=== PATIENT | male | born 1970 | race Caucasian/White ===

== ENCOUNTER 2016-06-05 14:51 | Emergency (ER) | payer OTHER ==
[2016-06-05] MEDS ORDERED: ALBUTEROL 90 MCG/ACT 8GM HFA INHALER As Ordered ONE (16:17)
--- NOTE | 2016-06-05 16:24 | REP ---
Chest x-ray: Two views. History: Cough . Comparison study: April 23, 2016 and December 12, 2012 . Findings: The lungs are well inflated and free of infiltrate. The pleural angles are sharp. The heart size is normal. Pulmonary vasculature is not increased. No significant bony abnormality is seen. Impression: Negative chest x-ray. Signed by Walter Rader MD 06/05/2016 04:16 P
[2016-06-05] MEDS ORDERED: AZITHROMYCIN 250 MG TAB As Ordered ONE (16:53)
--- NOTE | 2016-06-05 16:59 | EDDOCDS ---
Nurse's Notes [facility] Name: Hari Hanna Age: 46 yrs Sex: Male : 1970 Arrival Date: 06/05/2016 Time: 14:51 Bed PR Private MD: Fabián Lechuga P. Diagnosis: Acute serous otitis media, right ear;Acute bronchitis Presentation: 06/05 14:54 Presenting complaint: Patient states: "bronchitis" dx last week by Dr. Lechuga. Pt now ttb c/o deeper cough and headaches with coughing. "green phlegm". Adult Sepsis Screening: The patient does not have new or worsening altered mentation. Patient's respiratory rate is less than 22. Systolic blood pressure is greater than 100. Patient has a qSOFA score of 0- Negative Sepsis Screen. Suicide/Homicide risk assessment- the patient denies having any suicidal and/or homicidal ideations and does not present with any other emotional, behavioral or mental health complaints. 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 Transition of care: patient was not received from another setting of care. 14:54 Acuity: MOON Level 4 ttb 14:54 Method Of Arrival: Walkin/Carried/Asstd ttb Triage Assessment: 14:59 General: Appears in no apparent distress, well nourished, well groomed, Behavior is ttb appropriate for age, cooperative, pleasant. Pain: Location: headache 3/10. HIV screening NA for this visit Offered previously. Neurological: Level of Consciousness is awake, alert. Cardiovascular: Chest pain is denied. Respiratory: Airway is patent Respiratory effort is even, unlabored, shallow, Respiratory pattern is regular, Reports shortness of breath cough that is pain with cough the patient has moderate shortness of breath. Derm: Skin is normal. Historical: - Allergies: Latex (Rash); - Home Meds: 1. amitriptyline 25 mg Oral tab 1 tab once daily (Last dose: 06/04/2016) 2. gabapentin 300 mg Oral Tb24 three times a day (Last dose: 06/05/2016 08:00) 3. atenolol 50 mg Oral tab 1 tab 2 times per day (Last dose: 06/05/2016 08:00) 4. hydrochlorothiazide 25 mg Oral tab 1 tab once daily (Last dose: 06/05/2016 08:00) 5. ibuprofen 800 mg Oral tab 1 tab as needed (Last dose: Unknown) 6. Invokana 300 mg oral tab 1 tab once daily (Last dose: 06/05/2016 08:00) 7. lisinopril 40 mg Oral tab 1 tab once daily (Last dose: 06/05/2016 08:00) 8. Novolog 100 unit/mL Sub-Q soln 100 unit three times a day (Last dose: 06/05/2016 08:00) 9. omeprazole 20 mg Oral cpDR 1 cap once daily (Last dose: 06/05/2016 08:00) 10. oxycodone 5 mg Oral cap as needed (Last dose: 06/05/2016 08:00) 11. tizanidine 4 mg oral tab as needed (Last dose: 06/05/2016 08:00) 12. Victoza 2-Nixon 1.8mg subcutaneous once daily (Last dose: 06/05/2016 08:00) 13. Zyrtec 10 mg Oral tab 1 tab once daily (Last dose: 06/05/2016 08:00) 14. valacyclovir 500 mg Oral tab 2 tabs prn (Last dose: Unknown) 15. u500 insulin 31 units TID 16. [id number] 31 unit three times a day (Last dose: 06/05/2016 08:00) 17. Ceftin 500 mg Oral tab 2 times per day completed course yesterday (Last dose: 06/04/2016) - PMHx: Stroke; Spinal Stenosis; leaky heart valve; Hypertension; Hypercholesterolemia; GERD; Genital Warts; Diabetes - IDDM: controlled; Cholelithiasis; HSV; - PSHx: left knee; Arthroscopy, Knee- Right; right ankle; right wrist; - Social history: Smoking status: Patient states former smoker of tobacco. Patient/guardian denies using alcohol, street drugs, No barriers to communication noted, The patient speaks fluent Azerbaijani, Speaks appropriately for age. - Family history: Not pertinent. - : The pt / caregiver states he / she is not on anticoagulants. Home medication list is obtained from the patient. - Exposure Risk Screening:: None identified. Screenin:57 Screening information is obtained from the patient. Fall risk: No risks identified. js13 Assistance ADL's: requires no assistance with activities of daily living. Abuse/DV Screen: The patient / caregiver reports he/she is: not in a situation that causes fear, pain or injury. Nutritional screening: No deficits noted. Advance Directives: There is no active DNR order. home support is adequate. Assessment: 16:56 Adult Sepsis Screening: The patient does not have new or worsening altered mentation. js13 Patient's respiratory rate is less than 22. Systolic blood pressure is greater than 100. Patient has a qSOFA score of 0- Negative Sepsis Screen. General: Appears in no apparent distress, Behavior is appropriate for age, cooperative. Pain: Denies pain. Neurological: Level of Consciousness is awake, alert. Respiratory: Airway is patent Respiratory effort is even, unlabored, Respiratory pattern is regular, Breath sounds with wheezes. Derm: Skin is pink, warm & dry. Vital Signs: 14:54 BP 110 / 67; Pulse 106; Resp 17; Temp 98.4(T); Pulse Ox 96% ; Weight 142.88 kg (R); lr2 Height 5 ft. 9 in. (175.26 cm) (R); 14:54 Body Mass Index 46.52 (142.88 kg, 175.26 cm) lr2 Vitals: 14:54 Log In Time: June 05, 2016 at 14:51. lr2 ED Course: 14:53 Patient visited by Millie South. lr2 14:53 Fabián Lechuga is Private Physician. lr2 14:53 Patient moved to Waiting lr2 14:54 Patient moved to Pre RCE lr2 14:55 Triage Initiated ttb 15:01 Patient visited by Brianna Lee RN. ttb 15:15 Patient moved to Triage 1 srm 15:59 Edson Gutierrez PA is PHCP. mo1 15:59 Jacquie Arroyo MD is Attending Physician. mo1 16:06 Patient visited by Edson Gutierrez PA. mo1 16:11 Patient moved to PR / srm 16:33 [facility] Payment Agreement was scanned into [employer] and attached to record. zo 16:45 Chest, 2 View (pa\\E\\lat) Returned. EDMS 16:52 Fabián Lechuga is Referral Physician. mo1 16:57 The patient / caregiver is instructed regarding the plan of care and ED course. js13 16:57 No IV's were initiated during this patient's visit. No procedures done that require js13 assistance. Administered Medications: 16:23 Drug: Ventolin 2 puffs [Ventolin HFA 90 mcg/actuation aerosol inhaler (2 puffs)] Route: cs15 Inhalation; 16:56 Drug: azithromycin 500 mg [azithromycin 250 mg tablet (2 tabs)] Route: PO; js13 16:56 Follow up: Response: Pt left department before re-evaluation is appropriate js13 RT: 16:23 Initial Med Neb Given as ordered. Oxygen is room air. Respiratory: Respiratory effort cs15 is unlabored, Respiratory pattern is symmetrical, Sputum is thick brown yellow Breath sounds are diminished bilaterally. Order Results: Radiology Order: Chest, 2 View (pa\\E\\lat) Test: Chest, 2 View (pa\\E\\lat) REASON FOR EXAMINATION: Cough; Chest x-ray: Two views.; ; History: Cough .; ; Comparison study: April 23, 2016 and December 12, 2012 .; ; Findings: The lungs are well inflated and free of infiltrate. The pleural; angles are sharp. The heart size is normal. Pulmonary vasculature is not; increased. No significant bony abnormality is seen.; ; Impression:; ; Negative chest x-ray.; ; ; Signed by; Walter Rader MD 06/05/2016 04:16 P; Outcome: 16:53 Discharge ordered by Provider. mo1 16:57 Discharge Assessment: Patient awake, alert and oriented x 3. No cognitive and/or js13 functional deficits noted. Patient verbalized understanding of disposition instructions. patient administered narcotics - no. The following High Risk Discharge criteria are identified: None. Discharged to home ambulatory. Condition: stable. Discharge instructions given to patient, Instructed on discharge instructions, follow up and referral plans. medication usage, Demonstrated understanding of instructions, medications, Pt was receptive of discharge instructions/ teaching. Prescriptions given X 2. No special radiology studies were completed. Property :Personal belongings accompany Pt. 16:58 Patient left the ED. js13 Signatures: Dispatcher [employer] EDMS Linh Snider, Fabio Cole RN, Jennifer, RN RN js13 Brianna Lee RN RN ttb O'Hagan, Michael, PA PA mo1 Perico Alejandra,RT RT cs15 Millie South2 MTDD
--- NOTE | 2016-06-05 16:59 | EDDOCDS ---
Physician Documentation [facility] Name: Hari Hanna Age: 46 yrs Sex: Male : 1970 Arrival Date: 06/05/2016 Time: 14:51 Bed PR Private MD: Fabián Lechuga P. Disposition: 06/05/16 16:53 Discharged to Home/Self Care. Impression: Acute serous otitis media, right ear, Acute bronchitis. - Condition is Stable. - Discharge Instructions: Acute Bronchitis, Otitis Media, Adult. - Prescriptions for Zithromax Z- Nixon 250 mg Oral Tablet - take 1 tablet by ORAL route as directed for 5 days Day 1- take two tablets once. Day 2, 3, 4 , 5 take one tablet once daily.; 6 tablet. Albuterol Sulfate 90 mcg/actuation Inhalation HFA Aerosol Inhaler - inhale 2 puff by INHALATION route every 4 hours As needed; 1 Inhaler. - Medication Reconciliation, Local Pharmacy Hours form. - Follow up: Fabián Lechuga; When: Call to arrange an appointment; Reason: Recheck today's complaints, Continuance of care. - Problem is new. - Symptoms are unchanged. Historical: - Allergies: Latex (Rash); - Home Meds: 1. amitriptyline 25 mg Oral tab 1 tab once daily (Last dose: 06/04/2016) 2. gabapentin 300 mg Oral Tb24 three times a day (Last dose: 06/05/2016 08:00) 3. atenolol 50 mg Oral tab 1 tab 2 times per day (Last dose: 06/05/2016 08:00) 4. hydrochlorothiazide 25 mg Oral tab 1 tab once daily (Last dose: 06/05/2016 08:00) 5. ibuprofen 800 mg Oral tab 1 tab as needed (Last dose: Unknown) 6. Invokana 300 mg oral tab 1 tab once daily (Last dose: 06/05/2016 08:00) 7. lisinopril 40 mg Oral tab 1 tab once daily (Last dose: 06/05/2016 08:00) 8. Novolog 100 unit/mL Sub-Q soln 100 unit three times a day (Last dose: 06/05/2016 08:00) 9. omeprazole 20 mg Oral cpDR 1 cap once daily (Last dose: 06/05/2016 08:00) 10. oxycodone 5 mg Oral cap as needed (Last dose: 06/05/2016 08:00) 11. tizanidine 4 mg oral tab as needed (Last dose: 06/05/2016 08:00) 12. Victoza 2-Nixon 1.8mg subcutaneous once daily (Last dose: 06/05/2016 08:00) 13. Zyrtec 10 mg Oral tab 1 tab once daily (Last dose: 06/05/2016 08:00) 14. valacyclovir 500 mg Oral tab 2 tabs prn (Last dose: Unknown) 15. u500 insulin 31 units TID 16. [id number] 31 unit three times a day (Last dose: 06/05/2016 08:00) 17. Ceftin 500 mg Oral tab 2 times per day completed course yesterday (Last dose: 06/04/2016) - PMHx: Stroke; Spinal Stenosis; leaky heart valve; Hypertension; Hypercholesterolemia; GERD; Genital Warts; Diabetes - IDDM: controlled; Cholelithiasis; HSV; - PSHx: left knee; Arthroscopy, Knee- Right; right ankle; right wrist; - Social history: Smoking status: Patient states former smoker of tobacco. Patient/guardian denies using alcohol, street drugs, No barriers to communication noted, The patient speaks fluent Bruneian, Speaks appropriately for age. - Family history: Not pertinent. - : The pt / caregiver states he / she is not on anticoagulants. Home medication list is obtained from the patient. - Exposure Risk Screening:: None identified. Vital Signs: 06/05 14:54 BP 110 / 67; Pulse 106; Resp 17; Temp 98.4(T); Pulse Ox 96% ; Weight 142.88 kg / 315 lr2 lbs (R); Height 5 ft. 9 in. (175.26 cm) (R); 14:54 Body Mass Index 46.52 (142.88 kg, 175.26 cm) lr2 MDM: 16:07 Ventolin Inhaler 2 puffs Inhalation once ordered. mo1 16:07 MDI teaching with Spacer ordered. mo1 16:10 Chest, 2 View (pa\E\lat) Ordered. EDMS 16:32 Financial registration complete. zo 16:33 [facility] Payment Agreement was scanned into [employer] and attached to record. zo 16:52 azithromycin 500 mg PO once ordered. mo1 16:52 Chest, 2 View (pa\E\lat) Reviewed. mo1 Administered Medications: 16:23 Drug: Ventolin 2 puffs [Ventolin HFA 90 mcg/actuation aerosol inhaler (2 puffs)] Route: cs15 Inhalation; 16:56 Drug: azithromycin 500 mg [azithromycin 250 mg tablet (2 tabs)] Route: PO; js13 16:56 Follow up: Response: Pt left department before re-evaluation is appropriate js13 Signatures: Dispatcher [employer] EDFabio Ashby JenniferRN RN js13 Brianna Lee RN RN ttb Edson Gutierrez PA PA mo1 Perico Alejandra RT cs15 The chart was reviewed and I authenticate all verbal orders and agree with the evaluation and treatment provided.Attachments: 16:33 [facility] Payment Agreement zo MTDD
--- NOTE | 2016-06-07 17:59 | EDDOCDS ---
Physician Documentation [facility] Name: aHri Hanna Age: 46 yrs Sex: Male : 1970 Arrival Date: 06/05/2016 Time: 14:51 Bed PR Private MD: Fabián Lechuga P. Disposition: 06/05/16 16:53 Discharged to Home/Self Care. Impression: Acute serous otitis media, right ear, Acute bronchitis. - Condition is Stable. - Discharge Instructions: Acute Bronchitis, Otitis Media, Adult. - Prescriptions for Zithromax Z- Nixon 250 mg Oral Tablet - take 1 tablet by ORAL route as directed for 5 days Day 1- take two tablets once. Day 2, 3, 4 , 5 take one tablet once daily.; 6 tablet. Albuterol Sulfate 90 mcg/actuation Inhalation HFA Aerosol Inhaler - inhale 2 puff by INHALATION route every 4 hours As needed; 1 Inhaler. - Medication Reconciliation, Local Pharmacy Hours form. - Follow up: Fabián Lechuga; When: Call to arrange an appointment; Reason: Recheck today's complaints, Continuance of care. - Problem is new. - Symptoms are unchanged. Historical: - Allergies: Latex (Rash); - Home Meds: 1. amitriptyline 25 mg Oral tab 1 tab once daily (Last dose: 06/04/2016) 2. gabapentin 300 mg Oral Tb24 three times a day (Last dose: 06/05/2016 08:00) 3. atenolol 50 mg Oral tab 1 tab 2 times per day (Last dose: 06/05/2016 08:00) 4. hydrochlorothiazide 25 mg Oral tab 1 tab once daily (Last dose: 06/05/2016 08:00) 5. ibuprofen 800 mg Oral tab 1 tab as needed (Last dose: Unknown) 6. Invokana 300 mg oral tab 1 tab once daily (Last dose: 06/05/2016 08:00) 7. lisinopril 40 mg Oral tab 1 tab once daily (Last dose: 06/05/2016 08:00) 8. Novolog 100 unit/mL Sub-Q soln 100 unit three times a day (Last dose: 06/05/2016 08:00) 9. omeprazole 20 mg Oral cpDR 1 cap once daily (Last dose: 06/05/2016 08:00) 10. oxycodone 5 mg Oral cap as needed (Last dose: 06/05/2016 08:00) 11. tizanidine 4 mg oral tab as needed (Last dose: 06/05/2016 08:00) 12. Victoza 2-Nixon 1.8mg subcutaneous once daily (Last dose: 06/05/2016 08:00) 13. Zyrtec 10 mg Oral tab 1 tab once daily (Last dose: 06/05/2016 08:00) 14. valacyclovir 500 mg Oral tab 2 tabs prn (Last dose: Unknown) 15. u500 insulin 31 units TID 16. [id number] 31 unit three times a day (Last dose: 06/05/2016 08:00) 17. Ceftin 500 mg Oral tab 2 times per day completed course yesterday (Last dose: 06/04/2016) - PMHx: Stroke; Spinal Stenosis; leaky heart valve; Hypertension; Hypercholesterolemia; GERD; Genital Warts; Diabetes - IDDM: controlled; Cholelithiasis; HSV; - PSHx: left knee; Arthroscopy, Knee- Right; right ankle; right wrist; - Social history: Smoking status: Patient states former smoker of tobacco. Patient/guardian denies using alcohol, street drugs, No barriers to communication noted, The patient speaks fluent Bhutanese, Speaks appropriately for age. - Family history: Not pertinent. - : The pt / caregiver states he / she is not on anticoagulants. Home medication list is obtained from the patient. - Exposure Risk Screening:: None identified. Vital Signs: 06/05 14:54 BP 110 / 67; Pulse 106; Resp 17; Temp 98.4(T); Pulse Ox 96% ; Weight 142.88 kg / 315 lr2 lbs (R); Height 5 ft. 9 in. (175.26 cm) (R); 16:58 BP 129 / 73 RA Sitting (auto/lg); Pulse 104; Resp 16; Pulse Ox 97% on R/A; Pain 0/10; rs6 14:54 Body Mass Index 46.52 (142.88 kg, 175.26 cm) lr2 MDM: 16:07 Ventolin Inhaler 2 puffs Inhalation once ordered. mo1 16:07 MDI teaching with Spacer ordered. mo1 16:10 Chest, 2 View (pa\E\lat) Ordered. EDMS 16:32 Financial registration complete. zo 16:33 [facility] Payment Agreement was scanned into [employer] and attached to record. zo 16:52 azithromycin 500 mg PO once ordered. mo1 16:52 Chest, 2 View (pa\E\lat) Reviewed. mo1 06/06 11:45 T-Sheet-- Draft Copy was scanned into [employer] and attached to record. gb Administered Medications: 06/05 16:23 Drug: Ventolin 2 puffs [Ventolin HFA 90 mcg/actuation aerosol inhaler (2 puffs)] Route: cs15 Inhalation; 16:56 Drug: azithromycin 500 mg [azithromycin 250 mg tablet (2 tabs)] Route: PO; js13 16:56 Follow up: Response: Pt left department before re-evaluation is appropriate js13 Signatures: Dispatcher [employer] EDMS Angela Maradiaga, Roberth Reg gb Fabio Russell zo Joy Mota RN RN js13 Brianna Lee RN RN ttb Edson Gutierrez PA PA mo1 Perico Alejandra RT cs15 The chart was reviewed and I authenticate all verbal orders and agree with the evaluation and treatment provided.Attachments: 16:33 [facility] Payment Agreement zo 06/06 11:45 T-Sheet-- Draft Copy gb Chart Complete MTDD
--- NOTE | 2016-06-07 17:59 | EDDOCDS ---
Physician Documentation [facility] Name: Hari Hanna Age: 46 yrs Sex: Male : 1970 Arrival Date: 06/05/2016 Time: 14:51 Bed PR Private MD: Fabián Lechuga P. Disposition: 06/05/16 16:53 Discharged to Home/Self Care. Impression: Acute serous otitis media, right ear, Acute bronchitis. - Condition is Stable. - Discharge Instructions: Acute Bronchitis, Otitis Media, Adult. - Prescriptions for Zithromax Z- Nixon 250 mg Oral Tablet - take 1 tablet by ORAL route as directed for 5 days Day 1- take two tablets once. Day 2, 3, 4 , 5 take one tablet once daily.; 6 tablet. Albuterol Sulfate 90 mcg/actuation Inhalation HFA Aerosol Inhaler - inhale 2 puff by INHALATION route every 4 hours As needed; 1 Inhaler. - Medication Reconciliation, Local Pharmacy Hours form. - Follow up: Fabián Lechuga; When: Call to arrange an appointment; Reason: Recheck today's complaints, Continuance of care. - Problem is new. - Symptoms are unchanged. Historical: - Allergies: Latex (Rash); - Home Meds: 1. amitriptyline 25 mg Oral tab 1 tab once daily (Last dose: 06/04/2016) 2. gabapentin 300 mg Oral Tb24 three times a day (Last dose: 06/05/2016 08:00) 3. atenolol 50 mg Oral tab 1 tab 2 times per day (Last dose: 06/05/2016 08:00) 4. hydrochlorothiazide 25 mg Oral tab 1 tab once daily (Last dose: 06/05/2016 08:00) 5. ibuprofen 800 mg Oral tab 1 tab as needed (Last dose: Unknown) 6. Invokana 300 mg oral tab 1 tab once daily (Last dose: 06/05/2016 08:00) 7. lisinopril 40 mg Oral tab 1 tab once daily (Last dose: 06/05/2016 08:00) 8. Novolog 100 unit/mL Sub-Q soln 100 unit three times a day (Last dose: 06/05/2016 08:00) 9. omeprazole 20 mg Oral cpDR 1 cap once daily (Last dose: 06/05/2016 08:00) 10. oxycodone 5 mg Oral cap as needed (Last dose: 06/05/2016 08:00) 11. tizanidine 4 mg oral tab as needed (Last dose: 06/05/2016 08:00) 12. Victoza 2-Nixon 1.8mg subcutaneous once daily (Last dose: 06/05/2016 08:00) 13. Zyrtec 10 mg Oral tab 1 tab once daily (Last dose: 06/05/2016 08:00) 14. valacyclovir 500 mg Oral tab 2 tabs prn (Last dose: Unknown) 15. u500 insulin 31 units TID 16. aqihzpr350 31 unit three times a day (Last dose: 06/05/2016 08:00) 17. Ceftin 500 mg Oral tab 2 times per day completed course yesterday (Last dose: 06/04/2016) - PMHx: Stroke; Spinal Stenosis; leaky heart valve; Hypertension; Hypercholesterolemia; GERD; Genital Warts; Diabetes - IDDM: controlled; Cholelithiasis; HSV; - PSHx: left knee; Arthroscopy, Knee- Right; right ankle; right wrist; - Social history: Smoking status: Patient states former smoker of tobacco. Patient/guardian denies using alcohol, street drugs, No barriers to communication noted, The patient speaks fluent Senegalese, Speaks appropriately for age. - Family history: Not pertinent. - : The pt / caregiver states he / she is not on anticoagulants. Home medication list is obtained from the patient. - Exposure Risk Screening:: None identified. Vital Signs: 06/05 14:54 BP 110 / 67; Pulse 106; Resp 17; Temp 98.4(T); Pulse Ox 96% ; Weight 142.88 kg / 315 lr2 lbs (R); Height 5 ft. 9 in. (175.26 cm) (R); 16:58 BP 129 / 73 RA Sitting (auto/lg); Pulse 104; Resp 16; Pulse Ox 97% on R/A; Pain 0/10; rs6 14:54 Body Mass Index 46.52 (142.88 kg, 175.26 cm) lr2 MDM: 16:07 Ventolin Inhaler 2 puffs Inhalation once ordered. mo1 16:07 MDI teaching with Spacer ordered. mo1 16:10 Chest, 2 View (pa\E\lat) Ordered. EDMS 16:32 Financial registration complete. zo 16:33 [facility] Payment Agreement was scanned into [employer] and attached to record. zo 16:52 azithromycin 500 mg PO once ordered. mo1 16:52 Chest, 2 View (pa\E\lat) Reviewed. mo1 06/06 11:45 T-Sheet-- Draft Copy was scanned into [employer] and attached to record. gb Administered Medications: 06/05 16:23 Drug: Ventolin 2 puffs [Ventolin HFA 90 mcg/actuation aerosol inhaler (2 puffs)] Route: cs15 Inhalation; 16:56 Drug: azithromycin 500 mg [azithromycin 250 mg tablet (2 tabs)] Route: PO; js13 16:56 Follow up: Response: Pt left department before re-evaluation is appropriate js13 Signatures: Dispatcher [employer] EDMS Angela Maradiaga, Roberth Reg gb Fabio Russell zo Joy Mota RN RN js13 Brianna Lee RN RN ttb Edson Gutierrez PA PA mo1 Perico Alejandra RT cs15 The chart was reviewed and I authenticate all verbal orders and agree with the evaluation and treatment provided.Attachments: 16:33 [facility] Payment Agreement zo 06/06 11:45 T-Sheet-- Draft Copy gb Chart Complete MTDD
--- NOTE | 2016-06-07 17:59 | EDDOCDS ---
Nurse's Notes [facility] Name: Hari Hanna Age: 46 yrs Sex: Male : 1970 Arrival Date: 06/05/2016 Time: 14:51 Bed PR Private MD: Fabián Lechuga P. Diagnosis: Acute serous otitis media, right ear;Acute bronchitis Presentation: 06/05 14:54 Presenting complaint: Patient states: "bronchitis" dx last week by Dr. Lechuga. Pt now ttb c/o deeper cough and headaches with coughing. "green phlegm". Adult Sepsis Screening: The patient does not have new or worsening altered mentation. Patient's respiratory rate is less than 22. Systolic blood pressure is greater than 100. Patient has a qSOFA score of 0- Negative Sepsis Screen. Suicide/Homicide risk assessment- the patient denies having any suicidal and/or homicidal ideations and does not present with any other emotional, behavioral or mental health complaints. Status: Patient is not a track service person or dependent. Transition of care: patient was not received from another setting of care. 14:54 Acuity: MOON Level 4 ttb 14:54 Method Of Arrival: Walkin/Carried/Asstd ttb Triage Assessment: 14:59 General: Appears in no apparent distress, well nourished, well groomed, Behavior is ttb appropriate for age, cooperative, pleasant. Pain: Location: headache 3/10. HIV screening NA for this visit Offered previously. Neurological: Level of Consciousness is awake, alert. Cardiovascular: Chest pain is denied. Respiratory: Airway is patent Respiratory effort is even, unlabored, shallow, Respiratory pattern is regular, Reports shortness of breath cough that is pain with cough the patient has moderate shortness of breath. Derm: Skin is normal. Historical: - Allergies: Latex (Rash); - Home Meds: 1. amitriptyline 25 mg Oral tab 1 tab once daily (Last dose: 06/04/2016) 2. gabapentin 300 mg Oral Tb24 three times a day (Last dose: 06/05/2016 08:00) 3. atenolol 50 mg Oral tab 1 tab 2 times per day (Last dose: 06/05/2016 08:00) 4. hydrochlorothiazide 25 mg Oral tab 1 tab once daily (Last dose: 06/05/2016 08:00) 5. ibuprofen 800 mg Oral tab 1 tab as needed (Last dose: Unknown) 6. Invokana 300 mg oral tab 1 tab once daily (Last dose: 06/05/2016 08:00) 7. lisinopril 40 mg Oral tab 1 tab once daily (Last dose: 06/05/2016 08:00) 8. Novolog 100 unit/mL Sub-Q soln 100 unit three times a day (Last dose: 06/05/2016 08:00) 9. omeprazole 20 mg Oral cpDR 1 cap once daily (Last dose: 06/05/2016 08:00) 10. oxycodone 5 mg Oral cap as needed (Last dose: 06/05/2016 08:00) 11. tizanidine 4 mg oral tab as needed (Last dose: 06/05/2016 08:00) 12. Victoza 2-Nixon 1.8mg subcutaneous once daily (Last dose: 06/05/2016 08:00) 13. Zyrtec 10 mg Oral tab 1 tab once daily (Last dose: 06/05/2016 08:00) 14. valacyclovir 500 mg Oral tab 2 tabs prn (Last dose: Unknown) 15. u500 insulin 31 units TID 16. [id number] 31 unit three times a day (Last dose: 06/05/2016 08:00) 17. Ceftin 500 mg Oral tab 2 times per day completed course yesterday (Last dose: 06/04/2016) - PMHx: Stroke; Spinal Stenosis; leaky heart valve; Hypertension; Hypercholesterolemia; GERD; Genital Warts; Diabetes - IDDM: controlled; Cholelithiasis; HSV; - PSHx: left knee; Arthroscopy, Knee- Right; right ankle; right wrist; - Social history: Smoking status: Patient states former smoker of tobacco. Patient/guardian denies using alcohol, street drugs, No barriers to communication noted, The patient speaks fluent [place]serr[place], Speaks appropriately for age. - Family history: Not pertinent. - : The pt / caregiver states he / she is not on anticoagulants. Home medication list is obtained from the patient. - Exposure Risk Screening:: None identified. Screenin:57 Screening information is obtained from the patient. Fall risk: No risks identified. js13 Assistance ADL's: requires no assistance with activities of daily living. Abuse/DV Screen: The patient / caregiver reports he/she is: not in a situation that causes fear, pain or injury. Nutritional screening: No deficits noted. Advance Directives: There is no active DNR order. home support is adequate. Assessment: 16:56 Adult Sepsis Screening: The patient does not have new or worsening altered mentation. js13 Patient's respiratory rate is less than 22. Systolic blood pressure is greater than 100. Patient has a qSOFA score of 0- Negative Sepsis Screen. General: Appears in no apparent distress, Behavior is appropriate for age, cooperative. Pain: Denies pain. Neurological: Level of Consciousness is awake, alert. Respiratory: Airway is patent Respiratory effort is even, unlabored, Respiratory pattern is regular, Breath sounds with wheezes. Derm: Skin is pink, warm & dry. Vital Signs: 14:54 BP 110 / 67; Pulse 106; Resp 17; Temp 98.4(T); Pulse Ox 96% ; Weight 142.88 kg (R); lr2 Height 5 ft. 9 in. (175.26 cm) (R); 16:58 BP 129 / 73 RA Sitting (auto/lg); Pulse 104; Resp 16; Pulse Ox 97% on R/A; Pain 0/10; rs6 14:54 Body Mass Index 46.52 (142.88 kg, 175.26 cm) lr2 Vitals: 14:54 Log In Time: June 05, 2016 at 14:51. lr2 ED Course: 14:53 Patient visited by Millie South. lr2 14:53 Fabián Lechuga is Private Physician. lr2 14:53 Patient moved to Waiting lr2 14:54 Patient moved to Pre RCE lr2 14:55 Triage Initiated ttb 15:01 Patient visited by Brianna Lee RN. ttb 15:15 Patient moved to Triage 1 srm 15:59 Edson Gutierrez PA is PHCP. mo1 15:59 Jacquie Arroyo MD is Attending Physician. mo1 16:06 Patient visited by Edson Gutierrez PA. mo1 16:11 Patient moved to PR / srm 16:33 [facility] Payment Agreement was scanned into [employer] and attached to record. zo 16:45 Chest, 2 View (pa\\E\\lat) Returned. EDMS 16:52 Black, Christopher is Referral Physician. mo1 16:57 The patient / caregiver is instructed regarding the plan of care and ED course. js13 16:57 No IV's were initiated during this patient's visit. No procedures done that require js13 assistance. 16:58 Patient visited by Hiral Mims PCA. rs6 06/06 11:45 T-Sheet-- Draft Copy was scanned into [employer] and attached to record. gb Administered Medications: 06/05 16:23 Drug: Ventolin 2 puffs [Ventolin HFA 90 mcg/actuation aerosol inhaler (2 puffs)] Route: cs15 Inhalation; 16:56 Drug: azithromycin 500 mg [azithromycin 250 mg tablet (2 tabs)] Route: PO; js13 16:56 Follow up: Response: Pt left department before re-evaluation is appropriate js13 RT: 16:23 Initial Med Neb Given as ordered. Oxygen is room air. Respiratory: Respiratory effort cs15 is unlabored, Respiratory pattern is symmetrical, Sputum is thick brown yellow Breath sounds are diminished bilaterally. Order Results: Radiology Order: Chest, 2 View (pa\\E\\lat) Test: Chest, 2 View (pa\\E\\lat) REASON FOR EXAMINATION: Cough; Chest x-ray: Two views.; ; History: Cough .; ; Comparison study: April 23, 2016 and December 12, 2012 .; ; Findings: The lungs are well inflated and free of infiltrate. The pleural; angles are sharp. The heart size is normal. Pulmonary vasculature is not; increased. No significant bony abnormality is seen.; ; Impression:; ; Negative chest x-ray.; ; ; Signed by; Walter Rader MD 06/05/2016 04:16 P; Outcome: 16:53 Discharge ordered by Provider. mo1 16:57 Discharge Assessment: Patient awake, alert and oriented x 3. No cognitive and/or js13 functional deficits noted. Patient verbalized understanding of disposition instructions. patient administered narcotics - no. The following High Risk Discharge criteria are identified: None. Discharged to home ambulatory. Condition: stable. Discharge instructions given to patient, Instructed on discharge instructions, follow up and referral plans. medication usage, Demonstrated understanding of instructions, medications, Pt was receptive of discharge instructions/ teaching. Prescriptions given X 2. No special radiology studies were completed. Property :Personal belongings accompany Pt. 16:58 Patient left the ED. js13 Signatures: [facility] Linh Dooley, RN RN srm Ashwini, Angela, Reg Reg gb Fabio Russell Jennifer,RN RN js13 Brianna Lee, RN RN ttb Edson Gutierrez PA PA mo1 Felicita, Hiral, LINOLEUM LAYER APPRENTICE LINOLEUM LAYER APPRENTICE rs6 Justyn,Perico,RT RT cs15 Millie South lr2 Chart Complete MTDD
== END 2016-06-05 16:58 | disposition home or self-care (01) ==
LOC: M ED 14:51
DX: H66.91 Otitis media, unspecified, right ear (principal); J20.9 Acute bronchitis, unspecified; M48.00 Spinal stenosis, site unspecified; I10 Essential (primary) hypertension; E78.00 Pure hypercholesterolemia, unspecified; K21.9 Gastro-esophageal reflux disease without esophagitis; E10.9 Type 1 diabetes mellitus without complications; A63.0 Anogenital (venereal) warts; Z87.891 Personal history of nicotine dependence; Z86.73 Personal history of transient ischemic attack (TIA), and cerebral infarction without residual deficits; Z79.4 Long term (current) use of insulin; Z79.891 Long term (current) use of opiate analgesic; Z79.899 Other long term (current) drug therapy; Z91.040 Latex allergy status

== ENCOUNTER → 2016-07-06 | Outpatient (CLI) | payer OTHER ==
[2016-07-06 13:37] LABS: ALBUMIN 3.6 GM/DL (3.2-5.2); ALKALINE PHOSPHATASE 52 U/L (45-117); ALT/SGPT 41 U/L (12-78); ANION GAP 12 MEQ/L (8-16); AST/SGOT 38 U/L (15-37); BILIRUBIN,TOTAL 0.4 MG/DL (0.2-1.0); BLOOD UREA NITROGEN 16 MG/DL (7-18); CALCIUM LEVEL 9.4 MG/DL (8.5-10.1); CARBON DIOXIDE LEVEL 28 MEQ/L (21-32); CHLORIDE LEVEL 100 MEQ/L (98-107); CHOLESTEROL LEVEL 120 MG/DL (<200); CREATININE FOR GFR 1.12 MG/DL (0.70-1.30); GLOMERULAR FILTRATION RATE > 60.0 (>60); GLUCOSE, FASTING 159 MG/DL (70-105); POTASSIUM SERUM 4.1 MEQ/L (3.5-5.1); SODIUM LEVEL 140 MEQ/L (136-145); TOTAL PROTEIN 7.2 GM/DL (6.4-8.2); TRIGLYCERIDES LEVEL 332 MG/DL (<150)
== END ==
LOC: M LAB 12:15
PROVIDERS: ATTEND Emergency Medicine
DX: E55.9 Vitamin D deficiency, unspecified (principal); E78.2 Mixed hyperlipidemia; I10 Essential (primary) hypertension

== ENCOUNTER → 2016-07-06 | Outpatient (CLI) | payer OTHER ==
[2016-07-06 13:37] LABS: ANION GAP 11 MEQ/L (8-16); BLOOD UREA NITROGEN 16 MG/DL (7-18); CALCIUM LEVEL 9.3 MG/DL (8.5-10.1); CARBON DIOXIDE LEVEL 29 MEQ/L (21-32); CHLORIDE LEVEL 101 MEQ/L (98-107); CREATININE FOR GFR 1.16 MG/DL (0.70-1.30); GLOMERULAR FILTRATION RATE > 60.0 (>60); GLUCOSE, FASTING 158 MG/DL (70-105); POTASSIUM SERUM 4.1 MEQ/L (3.5-5.1); SODIUM LEVEL 141 MEQ/L (136-145)
== END ==
LOC: M LAB 12:19
PROVIDERS: ATTEND Physician Assistant Medical
DX: E11.65 Type 2 diabetes mellitus with hyperglycemia (principal)

== ENCOUNTER → 2016-12-25 | Outpatient (REF) | payer OTHER ==
[~2016-12-25] MED LIST: AMIT25TA; ATEN50TA2; AVEL1TAB3 PO; CETI10TA; GABA-282; HYDR25TAB; INSUH10VL; INSUR50VL; INVO300T; LISI-538; NAPR500T PO; OMEP20CA3; OXYC15TA76; PIOG15TA3; TRUL0.5I; Tizanidine; VALA1TAB2
[2016-12-25 14:30] LABS: ANION GAP 9 MEQ/L (8-16); BLOOD UREA NITROGEN 17 MG/DL (7-18); CARBON DIOXIDE LEVEL 30 MEQ/L (21-32); CHLORIDE LEVEL 100 MEQ/L (98-107); CREATININE FOR GFR 1.12 MG/DL (0.70-1.30); GLOMERULAR FILTRATION RATE > 60.0 (>60); GLUCOSE, FASTING 114 MG/DL (70-105); POTASSIUM SERUM 3.8 MEQ/L (3.5-5.1); SODIUM LEVEL 139 MEQ/L (136-145)
== END ==
LOC: M LABDRAW1 09:18
PROVIDERS: ATTEND Internal Medicine Endocrinology, Diabetes & Metabolism
DX: E11.65 Type 2 diabetes mellitus with hyperglycemia (principal)

== ENCOUNTER 2017-07-10 16:12 | Emergency (ER) | payer OTHER | END 2017-07-10 21:48 | disposition home or self-care (01) | LOC: M ED 16:12 | DX: S43.005A Unspecified dislocation of left shoulder joint, initial encounter (principal); S42.035A Nondisplaced fracture of lateral end of left clavicle, initial encounter for closed fracture; M47.812 Spondylosis without myelopathy or radiculopathy, cervical region; W01.0XXA Fall on same level from slipping, tripping and stumbling without subsequent striking against object, initial encounter; Y92.098 Other place in other non-institutional residence as the place of occurrence of the external cause; I10 Essential (primary) hypertension; E78.5 Hyperlipidemia, unspecified; Z86.73 Personal history of transient ischemic attack (TIA), and cerebral infarction without residual deficits; Z91.040 Latex allergy status; Z79.899 Other long term (current) drug therapy; Z79.4 Long term (current) use of insulin; F17.200 Nicotine dependence, unspecified, uncomplicated | CPT/HCPCS: 73000 ==

== ENCOUNTER → 2017-08-30 | Outpatient (CLI) | payer OTHER ==
[2017-08-30 11:12] LABS: ALBUMIN 3.7 GM/DL (3.2-5.2); ALBUMIN/GLOBULIN RATIO 1.03 (1.00-1.93); ALKALINE PHOSPHATASE 65 U/L (45-117); ALT/SGPT 26 U/L (12-78); ANION GAP 6 MEQ/L (8-16); AST/SGOT 22 U/L (7-37); BILIRUBIN,TOTAL 0.5 MG/DL (0.2-1.0); BLOOD UREA NITROGEN 19 MG/DL (7-18); CALCIUM LEVEL 8.9 MG/DL (8.5-10.1); CARBON DIOXIDE LEVEL 32 MEQ/L (21-32); CHLORIDE LEVEL 102 MEQ/L (98-107); CHOLESTEROL LEVEL 109 MG/DL (<200); CHOLESTEROL RISK RATIO 4.739 (<5); CREATININE FOR GFR 1.29 MG/DL (0.70-1.30); GLOMERULAR FILTRATION RATE > 60.0 (>60); GLUCOSE, FASTING 172 MG/DL (70-100); HDL CHOLESTEROL 23 MG/DL (>40); LDL CHOLESTEROL 27.2 MG/DL (<100); NON-HDL-C 86 MG/DL; POTASSIUM SERUM 4.2 MEQ/L (3.5-5.1); SODIUM LEVEL 140 MEQ/L (136-145); TOTAL PROTEIN 7.3 GM/DL (6.4-8.2); TRIGLYCERIDES LEVEL 294 MG/DL (<150)
[2017-08-30 11:19] LABS: VITAMIN B12 LEVEL > 2000 PG/ML (247-911)
== END ==
LOC: M LAB 10:19
DX: E11.65 Type 2 diabetes mellitus with hyperglycemia (principal)
CPT/HCPCS: 82607

== ENCOUNTER → 2017-09-21 | Outpatient (REF) | LOC: M SMT 11:50 | DX: M54.5 Low back pain (principal) ==

== ENCOUNTER → 2017-09-23 | Outpatient (CLI) | payer OTHER ==
[~2017-09-23] MED LIST changes: -AMIT25TA; -ATEN50TA2; -AVEL1TAB3 PO; -CETI10TA; +CONRAY-43 43% 50ML VIAL (Q9960) As Ordered; -GABA-282; -HYDR25TAB; -INSUH10VL; -INSUR50VL; -INVO300T; -LISI-538; -NAPR500T PO; -OMEP20CA3; -OXYC15TA76; -PIOG15TA3; +PROHANCE 279.3MG/ML 5ML VIAL (A9576) As Ordered; -TRUL0.5I; -Tizanidine; -VALA1TAB2
== END ==
LOC: M RADPRO 06:15
DX: M75.102 Unspecified rotator cuff tear or rupture of left shoulder, not specified as traumatic (principal); M25.412 Effusion, left shoulder; M85.612 Other cyst of bone, left shoulder
CPT/HCPCS: 73221

== ENCOUNTER → 2017-09-27 | Outpatient (CLI) | payer OTHER | LOC: M RAD 08:21 | DX: M25.551 Pain in right hip (principal) | CPT/HCPCS: 73721 ==

== ENCOUNTER 2017-12-26 09:29 | Emergency (ER) | payer OTHER ==
[2017-12-26 10:28] LABS: BASO % 0.6 % (0.0-1.0); EOS # 0.2 10^3/uL (0.0-0.50); EOS % 2.8 % (0.0-3.0); HEMATOCRIT 44.8 % (42.0-52.0); HEMOGLOBIN 15.1 g/dl (13.5-17.5); IMMATURE GRANULOCYTE % 0.3 % (0-3.0); LYMPH # 1.1 10^3/uL (1.5-4.5); LYMPH % 16.3 % (24.0-44.0); MEAN CORPUSCULAR HEMOGLOBIN 32.5 pg (27.0-33.0); MEAN CORPUSCULAR HGB CONC 33.7 g/dl (32.0-36.5); MEAN CORPUSCULAR VOLUME 96.3 fl (80.0-96.0); MONO # 0.3 10^3/uL (0.0-0.8); MONO % 5.1 % (0.0-5.0); NEUTROPHILS % 74.9 % (36.0-66.0); PLATELET COUNT, AUTOMATED 254 10^3/uL (150-450); RED BLOOD COUNT 4.65 10^6/uL (4.30-6.10); RED CELL DISTRIBUTION WIDTH 13.1 % (11.5-14.5); WHITE BLOOD COUNT 6.7 10^3/uL (4.0-10.0)
[2017-12-26 10:42] LABS: ANION GAP 8 MEQ/L (8-16); BLOOD UREA NITROGEN 16 MG/DL (7-18); CALCIUM LEVEL 8.1 MG/DL (8.5-10.1); CARBON DIOXIDE LEVEL 29 MEQ/L (21-32); CHLORIDE LEVEL 103 MEQ/L (98-107); CPK CREATINE PHOSPHOKINASE 138 U/L (39-308); CREATININE FOR GFR 1.24 MG/DL (0.70-1.30); GLOMERULAR FILTRATION RATE > 60.0 (>60); GLUCOSE, FASTING 273 MG/DL (70-100); MB/CK RELATIVE INDEX 3.62 (< OR =4); POTASSIUM SERUM 4.3 MEQ/L (3.5-5.1); SODIUM LEVEL 140 MEQ/L (136-145); TROPONIN I < 0.02 NG/ML (< 0.10)
== END 2017-12-26 13:05 | disposition home or self-care (01) ==
LOC: M ED 09:29
DX: M54.12 Radiculopathy, cervical region (principal); E11.9 Type 2 diabetes mellitus without complications; I10 Essential (primary) hypertension; J44.9 Chronic obstructive pulmonary disease, unspecified; G47.33 Obstructive sleep apnea (adult) (pediatric)
CPT/HCPCS: 72125

== ENCOUNTER → 2018-01-27 | Outpatient (CLI) | payer OTHER | LOC: M PAIN 13:00 | DX: Z53.29 Procedure and treatment not carried out because of patient's decision for other reasons (principal) ==

== ENCOUNTER 2018-01-31 17:40 | Emergency (ER) | payer OTHER | END 2018-01-31 19:45 | disposition home or self-care (01) | LOC: M ED 17:40 | DX: B00.9 Herpesviral infection, unspecified (principal); F44.9 Dissociative and conversion disorder, unspecified; K21.9 Gastro-esophageal reflux disease without esophagitis; M48.00 Spinal stenosis, site unspecified; D64.9 Anemia, unspecified; E78.00 Pure hypercholesterolemia, unspecified; I38 Endocarditis, valve unspecified | CPT/HCPCS: 99283 ==

== ENCOUNTER 2018-02-22 14:32 | Emergency (ER) | payer OTHER ==
[2018-02-22] MEDS: LIDOCAINE 2% W/EPIN INJ 20ML **PRES FREE INJ (17:05)
== END 2018-02-22 17:30 | disposition home or self-care (01) ==
LOC: M ED 14:32
DX: L02.415 Cutaneous abscess of right lower limb (principal); E11.9 Type 2 diabetes mellitus without complications; N18.9 Chronic kidney disease, unspecified; K21.9 Gastro-esophageal reflux disease without esophagitis; Z86.73 Personal history of transient ischemic attack (TIA), and cerebral infarction without residual deficits; F17.210 Nicotine dependence, cigarettes, uncomplicated; Z79.899 Other long term (current) drug therapy; Z79.4 Long term (current) use of insulin; Z91.040 Latex allergy status
CPT/HCPCS: 10060

== ENCOUNTER → 2018-04-07 | Outpatient (REF) | payer OTHER ==
[~2018-04-07] MED LIST changes: +ADME100I; +ALEV220C2 PO; +AMIT25TA; +ATEN50TA2; +AVEL1TAB3 PO; +CETI10TA; -CONRAY-43 43% 50ML VIAL (Q9960) As Ordered; +DOXY100C37 PO; +GABA-843; +HYDR25TAB; +IBUP1TAB7 PO; +INSUH10VL; +INSUR50VL; +INVO300T; +LISI-538; +METF10004 PO; +METF500T13 PO; +NAPR-49 PO; +OMEP20CA3; +OXYC15TA76; +PIOG1TAB36; +PROAAER10 INH; -PROHANCE 279.3MG/ML 5ML VIAL (A9576) As Ordered; +STEG15TA PO; +TRUL0.5I; +Tizanidine; +VALA1TAB2; +VALA500T4 PO; +VITA10002 PO; +VITA50005
[2018-04-07 15:43] LABS: BASO % 0.3 % (0.0-1.0); EOS # 0.2 10^3/uL (0.0-0.50); EOS % 1.9 % (0.0-3.0); HEMATOCRIT 50.4 % (42.0-52.0); HEMOGLOBIN 16.4 g/dl (13.5-17.5); LYMPH # 1.3 10^3/uL (1.5-4.5); LYMPH % 17.1 % (24.0-44.0); MEAN CORPUSCULAR HEMOGLOBIN 32.6 pg (27.0-33.0); MEAN CORPUSCULAR HGB CONC 32.5 g/dl (32.0-36.5); MEAN CORPUSCULAR VOLUME 100.2 fl (80.0-96.0); MONO # 0.3 10^3/uL (0.0-0.8); MONO % 3.9 % (0.0-5.0); NEUTROPHILS # 5.9 10^3/uL (1.8-7.7); NEUTROPHILS % 76.4 % (36.0-66.0); PLATELET COUNT, AUTOMATED 253 10^3/uL (150-450); RED BLOOD COUNT 5.03 10^6/uL (4.30-6.10); WHITE BLOOD COUNT 7.7 10^3/uL (4.0-10.0)
[2018-04-07 15:58] LABS: ALBUMIN 3.3 GM/DL (3.2-5.2); ALT/SGPT 32 U/L (12-78); BILIRUBIN,TOTAL 0.4 MG/DL (0.2-1.0); BLOOD UREA NITROGEN 20 MG/DL (7-18); CALCIUM LEVEL 8.9 MG/DL (8.5-10.1); CARBON DIOXIDE LEVEL 36 MEQ/L (21-32); CHLORIDE LEVEL 99 MEQ/L (98-107); CREATININE FOR GFR 1.14 MG/DL (0.70-1.30); GLOMERULAR FILTRATION RATE > 60.0 (>60); GLUCOSE, FASTING 122 MG/DL (70-100); SODIUM LEVEL 140 MEQ/L (136-145); THYROID STIMULATING HORMONE 0.981 uIU/ML (0.358-3.740); TOTAL PROTEIN 6.9 GM/DL (6.4-8.2)
[2018-04-07 16:10] LABS: HEMOGLOBIN A1c 8.5 %
== END ==
LOC: M LABDRAW1 15:25
PROVIDERS: ATTEND Physician Assistant
DX: I10 Essential (primary) hypertension (principal)

== ENCOUNTER 2018-09-04 14:55 | Emergency (ER) | payer OTHER ==
[~2018-09-04 14:55] MED LIST changes: -ADME100I; +ADME100I SC; -AMIT25TA; +AMIT25TA PO; -ATEN50TA2; +ATEN50TA2 PO; -CETI10TA; +CETI10TA PO; +GABA-843 PO; -HYDR25TAB; +HYDR25TAB PO; -INSUR50VL; +INSUR50VL SC; -LISI-538; +LISI-538 PO; -NAPR-49 PO; +NAPR-837 PO; -OMEP20CA3; +OMEP20CA3 PO; -OXYC15TA76; +OXYC15TA76 PO; +TRUL0.5I SC; -VALA500T4 PO; +VALA500T5 PO; -VITA50005; +VITA50005 PO
[2018-09-04] MEDS ORDERED: TIZA4TAB4 PO (15:09)
[2018-09-04] MEDS ORDERED: MECL1CHW PO (15:13)
[2018-09-04] MEDS ORDERED: ONDANSETRON 4MG/2ML VIAL (J2405) IV ONE (15:15)
[2018-09-04] MEDS ORDERED: HYDROMORPHONE HCL 0.5 MG/ 0.5 ML SYRINGE (J1170 PER 1) IV PRN (15:15)
[2018-09-04] MEDS ORDERED: LIDOCAINE 5% (LIDODERM) PATCH TD ONE (15:30)
[2018-09-04] MEDS ORDERED: ACETAMINOPHEN 500 MG TAB PO ONE (15:30)
[2018-09-04 15:44] LABS: BASO % 0.5 % (0.0-1.0); EOS # 0.2 10^3/uL (0.0-0.50); EOS % 3.1 % (0.0-3.0); HEMATOCRIT 45.6 % (42.0-52.0); HEMOGLOBIN 15.2 g/dl (13.5-17.5); LYMPH # 1.3 10^3/uL (1.5-4.5); LYMPH % 21.8 % (24.0-44.0); MEAN CORPUSCULAR HEMOGLOBIN 32.1 pg (27.0-33.0); MEAN CORPUSCULAR HGB CONC 33.3 g/dl (32.0-36.5); MEAN CORPUSCULAR VOLUME 96.2 fl (80.0-96.0); MONO # 0.3 10^3/uL (0.0-0.8); MONO % 5.5 % (0.0-5.0); NEUTROPHILS % 68.8 % (36.0-66.0); PLATELET COUNT, AUTOMATED 236 10^3/uL (150-450); RED BLOOD COUNT 4.74 10^6/uL (4.30-6.10); WHITE BLOOD COUNT 5.8 10^3/uL (4.0-10.0)
[2018-09-04 16:13] LABS: BLOOD UREA NITROGEN 25 MG/DL (7-18); CALCIUM LEVEL 9.1 MG/DL (8.5-10.1); CARBON DIOXIDE LEVEL 29 MEQ/L (21-32); CHLORIDE LEVEL 102 MEQ/L (98-107); GLOMERULAR FILTRATION RATE > 60.0 (>60); GLUCOSE, FASTING 252 MG/DL (70-100); POTASSIUM SERUM 5.7 MEQ/L (3.5-5.1); SODIUM LEVEL 137 MEQ/L (136-145)
--- NOTE | 2018-09-04 18:52 | REPVR ---
EXAM: MR Lumbar Spine Without Contrast. EXAM DATE/TIME: 09/04/2018 4:51 PM CLINICAL HISTORY: 48 years old, male; Sciatica; Right; Prior surgery; Surgery date: 6+ months; Surgery type: Per PT, removed bone chips in 1997; Patient HX: Pain, weakness RT lower extremity TECHNIQUE: Imaging protocol: Multiplanar magnetic resonance images of the lumbar spine without intravenous contrast. COMPARISON: SPINE LUMBOSACRAL PARTIAL 09/21/2017 12:02 PM FINDINGS: Vertebrae: Unremarkable. L1-L2: No significant disc disease. No stenosis. L2-L3: No significant disc disease. No stenosis. L3-L4: There is a moderate right paracentral disc protrusion causing moderate impression on the anterior right side of the thecal sac. A large disc protrusion extends into the right L3 neural foramina and causing severe left L3 neural foramina stenosis. There is approximately 5 mm retrolisthesis of L3 on L4. L4-L5: There is a moderate left paracentral disc protrusion with annular tear and facet hypertrophy all producing moderate central spinal canal stenosis. There is mild bilateral L4 neural foramina narrowing. Prominent low signal intensity within the L4-L5 disc may be fibrosis or fatty infiltration. L5-S1: There is mild broad-based disc protrusion causing mild impression on the thecal sac. There is prominent protrusion into the caudal aspect of the right and left L5 neural foramina causing severe bilateral L5 neural foramina narrowing. Spinal cord: The conus is normal in size and ending at L1. Soft tissues: Unremarkable. IMPRESSION: 1. The L5-S1 level demonstrates severe bilateral L5 neural foramina narrowing. 2. The L4-L5 level demonstrates moderate left paracentral disc protrusion and moderate central spinal canal stenosis. 3. The L3-L4 level demonstrates moderate right paracentral disc protrusion. Severe disc protrusion along with facet hypertrophy causing severe right L3 neural foramina narrowing. Electronically signed by: Jim Navarrete On 09/04/2018 18:52:09 PM
[2018-09-04] MEDS ORDERED: INSUR50VL SC (18:54)
[2018-09-04] MEDS ORDERED: OXYC20TA2 PO (18:54)
[2018-09-04] MEDS ORDERED: METF500T4 PO (18:54)
[2018-09-04] MEDS ORDERED: AZEL1SPR3 (18:54)
[2018-09-04] MEDS ORDERED: VENTAER INH (18:54)
[2018-09-04 18:58] LABS: C REACTIVE PROTEIN QUANTITATIV 0.57 MG/DL (0.00-0.30)
[2018-09-04 19:16] LABS: ERYTHROCYTE SEDIMENTATION RATE 31 mm/hr (0-15)
[2018-09-04 19:49] VITALS: BP 146/88
[2018-09-04] MEDS ORDERED: **NOTE PATIENT COMMENT** MISC XX SCH (21:00)
--- NOTE | 2018-09-06 05:55 | ED PDOC ---
Post-Departure Follow-Up dr bundy faxed formal report of mri ls spine for fu Amanda Mcdonnell MD September 06, 2018 05:55
== END 2018-09-04 19:50 | disposition home or self-care (01) ==
LOC: EDBD 14:55 → M ED 14:55
DX: M54.5 Low back pain (principal); M51.36 Other intervertebral disc degeneration, lumbar region; M99.53 Intervertebral disc stenosis of neural canal of lumbar region; M48.061 Spinal stenosis, lumbar region without neurogenic claudication; Z87.81 Personal history of (healed) traumatic fracture; E11.40 Type 2 diabetes mellitus with diabetic neuropathy, unspecified; I10 Essential (primary) hypertension; G47.30 Sleep apnea, unspecified; J44.9 Chronic obstructive pulmonary disease, unspecified; N18.9 Chronic kidney disease, unspecified; Z86.73 Personal history of transient ischemic attack (TIA), and cerebral infarction without residual deficits; Z87.39 Personal history of other diseases of the musculoskeletal system and connective tissue; Z87.891 Personal history of nicotine dependence; Z79.4 Long term (current) use of insulin; Z79.899 Other long term (current) drug therapy; Z91.041 Radiographic dye allergy status; Z91.040 Latex allergy status
CPT/HCPCS: 72148; 80048; 85025; 85652; 86140; 96374; 96375; 99284; J1170; J2405

== ENCOUNTER → 2018-09-15 | Outpatient (REF) | payer OTHER ==
[~2018-09-15] MED LIST changes: +AZEL1SPR3; +MECL1CHW PO; +METF500T4 PO; +OXYC20TA2 PO; +TIZA4TAB4 PO; +VENTAER INH
[2018-09-15 18:09] LABS: APPEARANCE, URINE CLEAR (CLEAR); BACTERIA, URINE AUTO NEGATIVE (NEGATIVE); BILIRUBIN, URINE AUTO NEGATIVE (NEGATIVE); BLOOD, URINE BLOOD NEGATIVE (NEGATIVE); COLOR, URINE YELLOW (YELLOW); GLUCOSE, URINE (UA) AUTO 3+ mg/dL (NEGATIVE); KETONE, URINE AUTO TRACE mg/dL (NEGATIVE); LEUKOCYTE ESTERASE, URINE AUTO NEGATIVE (NEGATIVE); NITRITE, URINE AUTO NEGATIVE (NEGATIVE); PROTEIN, URINE AUTO NEGATIVE (NEGATIVE); RBC, URINE AUTO 2 /HPF (0-3); SPECIFIC GRAVITY URINE AUTO 1.026 (1.002-1.035); SQUAMOUS EPITHELIAL CELL UR AU 1 /HPF (0-6); WBC, URINE AUTO 1 /HPF (0-3)
[2018-09-15 18:45] LABS: CREATININE, URINE 60.1 MG/DL; MAU/CREAT RATIO 23.2 MCG/MG (0.0-30.0)
== END ==
LOC: M LAB REF 17:06
PROVIDERS: ATTEND Physician Assistant
DX: R35.0 Frequency of micturition (principal)

== ENCOUNTER → 2018-12-14 | Outpatient (CLI) | payer OTHER ==
[~2018-12-14] MED LIST changes: +CYAN100049 PO; -OMEP20CA3 PO; +OMEP20CA4 PO; -VITA10002 PO
[2018-12-14 11:11] LABS: ALBUMIN 3.3 GM/DL (3.2-5.2); ALT/SGPT 28 U/L (12-78); BILIRUBIN,TOTAL 0.4 MG/DL (0.2-1.0); BLOOD UREA NITROGEN 16 MG/DL (7-18); CALCIUM LEVEL 9.2 MG/DL (8.5-10.1); CARBON DIOXIDE LEVEL 31 MEQ/L (21-32); CHLORIDE LEVEL 102 MEQ/L (98-107); CREATININE FOR GFR 1.09 MG/DL (0.70-1.30); GLOMERULAR FILTRATION RATE > 60.0 (>60); GLUCOSE, FASTING 127 MG/DL (70-100); POTASSIUM SERUM 3.6 MEQ/L (3.5-5.1); SODIUM LEVEL 141 MEQ/L (136-145); TOTAL PROTEIN 7.3 GM/DL (6.4-8.2); URIC ACID 6.8 MG/DL (3.5-7.2)
== END ==
LOC: M LAB 09:59
PROVIDERS: ATTEND Physician Assistant
DX: M10.9 Gout, unspecified (principal)

== ENCOUNTER → 2018-12-26 | Outpatient (REF) | payer OTHER ==
[~2018-12-26] MED LIST changes: +METF-791 PO; -METF500T4 PO
[2019-01-01 00:10] LABS: FREE CORTISOL 24HR URINE 7 ug/24 hr (5-64); FREE CORTISOL URINE 2 ug/L (Undefined)
== END ==
LOC: M LAB REF 13:46
PROVIDERS: ATTEND Internal Medicine Endocrinology, Diabetes & Metabolism
DX: E11.65 Type 2 diabetes mellitus with hyperglycemia (principal)

== ENCOUNTER → 2019-02-22 | Outpatient (REF) | payer OTHER ==
[2019-02-22 15:51] LABS: BLOOD UREA NITROGEN 22 MG/DL (7-18); CALCIUM LEVEL 9.6 MG/DL (8.5-10.1); CARBON DIOXIDE LEVEL 36 MEQ/L (21-32); CHLORIDE LEVEL 94 MEQ/L (98-107); CREATININE FOR GFR 1.16 MG/DL (0.70-1.30); GLOMERULAR FILTRATION RATE > 60.0 (>60); GLUCOSE, FASTING 225 MG/DL (70-100); SODIUM LEVEL 137 MEQ/L (136-145)
== END ==
LOC: M LABDRAW1 13:22
PROVIDERS: ATTEND Physician Assistant
DX: R60.0 Localized edema (principal)

== ENCOUNTER → 2019-04-21 | Outpatient (CLI) | payer OTHER ==
[~2019-04-21] MED LIST changes: +OMEP-172 PO; -OMEP20CA4 PO; -VALA1TAB2; +VALA1TAB64
[2019-04-21 13:52] LABS: FREE T4 0.61 NG/DL (0.76-1.46); RHEUMATOID FACTOR QUANT < 10.0 IU/ML (<15.0)
[2019-04-21 13:53] LABS: VITAMIN B12 LEVEL 1385 PG/ML (247-911)
[2019-04-21 14:17] LABS: FOLATE 21.2 NG/ML (>5.4)
== END ==
LOC: M LAB 12:22
PROVIDERS: ATTEND Psychiatry & Neurology Neurology
DX: R41.3 Other amnesia (principal); G62.9 Polyneuropathy, unspecified

== ENCOUNTER → 2019-05-02 | Outpatient (CLI) | payer OTHER ==
[2019-05-02 15:41] LABS: CALCIUM LEVEL 8.9 MG/DL (8.5-10.1); CREATININE FOR GFR 1.44 MG/DL (0.70-1.30); GLOMERULAR FILTRATION RATE 55.5 (>60); POTASSIUM SERUM 3.6 MEQ/L (3.5-5.1)
== END ==
LOC: M LAB 14:27
PROVIDERS: ATTEND Physician Assistant
DX: R60.0 Localized edema (principal)

== ENCOUNTER → 2019-06-09 | Outpatient (CLI) | payer OTHER ==
[~2019-06-09] MED LIST changes: -OMEP-172 PO; +OMEP1CAP73 PO; +VALA1TAB5; -VALA1TAB64
--- NOTE | 2019-06-09 17:21 | REPVR ---
PROCEDURE INFORMATION: Exam: MR Head Without Contrast Exam date and time: 06/09/2019 4:34 PM Age: 49 years old Clinical indication: Pain; Headache; Post-traumatic; Patient HX: HX brain injuries, h/a; Additional info: Cerebral infarction TECHNIQUE: Imaging protocol: MR of the head without contrast. COMPARISON: No relevant prior studies available. FINDINGS: Brain: No acute infarct identified on the diffusion-weighted imaging. No parenchymal hemorrhage. No evidence of brain parenchymal edema or intracranial mass effect. No significant white matter disease. No areas of cerebral encephalomalacia identified. Ventricles: Normal. No ventriculomegaly. Bones/joints: Unremarkable. Soft tissues: Unremarkable. Sinuses: Retention cyst or polyp in the right maxillary sinus. Trace ethmoid sinus mucosal thickening. Mastoid air cells: Normal as visualized. No mastoid effusion. Orbits: Unremarkable. IMPRESSION: No acute intracranial abnormality. Electronically signed by: Leidy Burroughs On 06/09/2019 17:20:33 PM
--- NOTE | 2019-06-09 17:23 | REPVR ---
PROCEDURE INFORMATION: Exam: MR Angiography Neck Without Contrast Exam date and time: 06/09/2019 4:34 PM Age: 49 years old Clinical indication: Pain; Headache; Patient HX: CLAIRE; Additional info: Cerebral infarction TECHNIQUE: Imaging protocol: Magnetic resonance angiography of the neck without contrast. 3D rendering: MIP and/or 3D reconstructed images were created by the technologist. COMPARISON: CT Neck without contrast 12/13/2012 1:58 AM FINDINGS: Right common carotid artery: Unremarkable. No stenosis. No dissection or occlusion. Right internal carotid artery: Unremarkable extracranial segment. No stenosis. No dissection or occlusion. Right external carotid artery: Unremarkable. No stenosis. No dissection or occlusion of the origin. Right vertebral artery: Unremarkable. No stenosis. No dissection or occlusion. Left common carotid artery: Unremarkable. No stenosis. No dissection or occlusion. Left internal carotid artery: Unremarkable extracranial segment. No stenosis. No dissection or occlusion. Left external carotid artery: Unremarkable. No stenosis. No dissection or occlusion of the origin. Left vertebral artery: Unremarkable. No stenosis. No dissection or occlusion. IMPRESSION: No acute vascular findings or stenoses in the neck. COMMENT: Using NASCET method for measuring degree of carotid artery stenosis: Mild is less than 50% stenosis. Moderate is 50-69% stenosis. Severe is 70-94% stenosis. Near occlusion is 95-99% stenosis. Electronically signed by: Leidy Burroughs On 06/09/2019 17:22:34 PM
== END ==
LOC: M PLARAD 14:33
PROVIDERS: ATTEND Psychiatry & Neurology Neurology
DX: I63.9 Cerebral infarction, unspecified (principal)

== ENCOUNTER → 2019-06-20 | Outpatient (CLI) | payer OTHER ==
[2019-06-20 13:00] LABS: BASO # 0.1 10^3/uL (0.0-0.2); BASO % 0.7 % (0.0-1.0); EOS # 0.5 10^3/uL (0.0-0.5); EOS % 6.8 % (0.0-3.0); HEMATOCRIT 42.1 % (42.0-52.0); HEMOGLOBIN 14.2 g/dl (13.5-17.5); LYMPH # 1.7 10^3/uL (1.5-5.0); LYMPH % 24.1 % (24.0-44.0); MEAN CORPUSCULAR HEMOGLOBIN 31.8 pg (27.0-33.0); MEAN CORPUSCULAR HGB CONC 33.7 g/dl (32.0-36.5); MEAN CORPUSCULAR VOLUME 94.2 fl (80.0-96.0); MONO # 0.4 10^3/uL (0.0-0.8); MONO % 5.2 % (0.0-5.0); NEUTROPHILS # 4.3 10^3/uL (1.5-8.5); NEUTROPHILS % 63.1 % (36.0-66.0); PLATELET COUNT, AUTOMATED 234 10^3/uL (150-450); RED BLOOD COUNT 4.47 10^6/uL (4.30-6.10); WHITE BLOOD COUNT 6.9 10^3/uL (4.0-10.0)
[2019-06-20 13:36] LABS: FOLATE > 24.0 NG/ML; VITAMIN B12 LEVEL 1031 PG/ML
[2019-06-23 14:09] LABS: TESTOSTERONE FREE (DIRECT) 11.6 pg/mL (6.8-21.5)
== END ==
LOC: M LAB 11:14
PROVIDERS: ATTEND Physician Assistant
DX: T45.2X5A Adverse effect of vitamins, initial encounter (principal); E29.1 Testicular hypofunction

== ENCOUNTER → 2019-06-20 | Outpatient (CLI) | payer OTHER ==
[2019-06-20 12:29] LABS: CHOLESTEROL LEVEL 146 MG/DL (<200); CHOLESTEROL RISK RATIO 6.347 (<5); FREE T4 0.75 NG/DL (0.76-1.46); HDL CHOLESTEROL 23 MG/DL (>40); LDL CHOLESTEROL 63 MG/DL (<100); NON-HDL-C 123 MG/DL; TRIGLYCERIDES LEVEL 301 MG/DL (<150)
[2019-06-21 11:27] LABS: THYROID PEROXIDASE ANTIBODY < 28.0 U/ML (<60.0)
== END ==
LOC: M LAB 11:16
PROVIDERS: ATTEND Nurse Practitioner Family
DX: R94.6 Abnormal results of thyroid function studies (principal); E78.2 Mixed hyperlipidemia

== ENCOUNTER → 2019-11-07 | Outpatient (CLI) | payer OTHER ==
[~2019-11-07] MED LIST changes: -METF-791 PO; +METF-838 PO; +OXYC-1 PO; -OXYC15TA76 PO
[2019-11-07 12:21] LABS: FREE T4 0.74 NG/DL (0.76-1.46); THYROID STIMULATING HORMONE 1.42 uIU/ML (0.358-3.740)
[2019-11-07 13:02] LABS: MALB URINE SIEMENS 8.8 MG/L; MAU/CREAT RATIO 31.4 MCG/MG (0.0-30.0)
== END ==
LOC: M LAB 10:43
PROVIDERS: ATTEND Nurse Practitioner Family
DX: R94.6 Abnormal results of thyroid function studies (principal); E11.65 Type 2 diabetes mellitus with hyperglycemia

== ENCOUNTER → 2019-11-13 | Outpatient (CLI) | payer OTHER | LOC: M LABSMTC 14:20 | PROVIDERS: ATTEND Family Medicine | DX: Z11.59 Encounter for screening for other viral diseases (principal); Z20.828 Contact with and (suspected) exposure to other viral communicable diseases ==

== ENCOUNTER → 2019-11-29 | Outpatient (REF) | payer OTHER | LOC: M SMT 11:15 | PROVIDERS: ATTEND Nurse Practitioner Family | DX: N39.0 Urinary tract infection, site not specified (principal) ==

== ENCOUNTER → 2020-01-08 | Outpatient (CLI) | payer OTHER ==
[2020-01-08 13:20] LABS: FREE T4 0.81 NG/DL (0.76-1.46); THYROID STIMULATING HORMONE 0.331 uIU/ML (0.358-3.740)
== END ==
LOC: M LAB 11:34
PROVIDERS: ATTEND Physician Assistant
DX: R94.6 Abnormal results of thyroid function studies (principal)

== ENCOUNTER → 2020-01-11 | Outpatient (CLI) | payer OTHER | LOC: M LAB 09:05 | PROVIDERS: ATTEND Urology | DX: N52.9 Male erectile dysfunction, unspecified (principal) ==

== ENCOUNTER → 2020-02-02 | Outpatient (REF) | payer OTHER | LOC: M LAB REF 14:08 | PROVIDERS: ATTEND Physician Assistant | DX: D23.9 Other benign neoplasm of skin, unspecified (principal) ==

== ENCOUNTER → 2020-02-03 | Outpatient (CLI) | payer OTHER ==
[2020-02-03 09:18] LABS: HEMATOCRIT 40.8 % (42.0-52.0); HEMOGLOBIN 13.3 g/dl (13.5-17.5); MEAN CORPUSCULAR HEMOGLOBIN 32.8 pg (27.0-33.0); MEAN CORPUSCULAR HGB CONC 32.6 g/dl (32.0-36.5); MEAN CORPUSCULAR VOLUME 100.5 fl (80.0-96.0); PLATELET COUNT, AUTOMATED 228 10^3/uL (150-450); RED BLOOD COUNT 4.06 10^6/uL (4.30-6.10); WHITE BLOOD COUNT 5.6 10^3/uL (4.0-10.0)
[2020-02-03 09:44] LABS: ALBUMIN 3.7 GM/DL (3.2-5.2); ALT/SGPT 42 U/L (12-78); BILIRUBIN,TOTAL 0.3 MG/DL (0.2-1.0); BLOOD UREA NITROGEN 23 MG/DL (7-18); CALCIUM LEVEL 9.3 MG/DL (8.5-10.1); CARBON DIOXIDE LEVEL 31 MEQ/L (21-32); CHLORIDE LEVEL 104 MEQ/L (98-107); CHOLESTEROL LEVEL 89 MG/DL (<200); CHOLESTEROL RISK RATIO 3.869 (<5); CREATININE FOR GFR 1.31 MG/DL (0.70-1.30); GLOMERULAR FILTRATION RATE > 60.0 (>60); GLUCOSE, FASTING 166 MG/DL (70-100); HDL CHOLESTEROL 23 MG/DL (>40); LDL CHOLESTEROL 12 MG/DL (<100); NON-HDL-C 66 MG/DL; POTASSIUM SERUM 4.6 MEQ/L (3.5-5.1); SODIUM LEVEL 140 MEQ/L (136-145); TOTAL PROTEIN 7.3 GM/DL (6.4-8.2); TRIGLYCERIDES LEVEL 269 MG/DL (<150)
[2020-02-05 09:17] LABS: TESTOSTERONE 239 NG/DL (241-827)
[2020-02-05 09:18] LABS: ESTRADIOL 54.9 PG/ML (<39.8); LUTEINIZING HORMONE 3.8 mIU/mL (1.5-9.3); PROLACTIN 8.9 NG/ML (2.1-17.7)
[2020-02-05 09:19] LABS: FOLLICLE STIMULATING HORMONE 4.2 mIU/mL (1.4-18.1)
== END ==
LOC: M LAB 08:44
PROVIDERS: ATTEND Nurse Practitioner Family
DX: E29.1 Testicular hypofunction (principal); Z12.5 Encounter for screening for malignant neoplasm of prostate

== ENCOUNTER → 2020-03-18 | Outpatient (REF) | payer OTHER | LOC: M LAB REF 17:17 | PROVIDERS: ATTEND Dermatology | DX: L72.0 Epidermal cyst (principal) ==

== ENCOUNTER → 2020-04-01 | Outpatient (CLI) | payer SELFPAY | LOC: M LABSMTC 17:46 | PROVIDERS: ATTEND Pediatrics | DX: Z20.828 Contact with and (suspected) exposure to other viral communicable diseases (principal) ==

== ENCOUNTER → 2020-12-04 | Outpatient (CLI) | payer OTHER ==
[~2020-12-04] MED LIST changes: -AMIT25TA PO; +AMIT25TA17 PO; -DOXY100C37 PO; +DOXY1CAP62 PO; +GABA-282; +GABA-282 PO; -GABA-843; -GABA-843 PO; +HYDR-3490 PO; -HYDR25TAB PO; -LISI-538 PO; +LISI20TA33 PO
--- NOTE | 2020-12-04 22:15 | REPVR ---
PROCEDURE INFORMATION: Exam: MR Lumbar Spine Without Contrast Exam date and time: 12/04/2020 8:50 AM Age: 50 years old Clinical indication: Low back pain TECHNIQUE: Imaging protocol: Multiplanar magnetic resonance images of the lumbar spine without intravenous contrast. COMPARISON: MRI-Spine, L.S. without con 09/04/2018 4:51 PM FINDINGS: Vertebral body heights are maintained. Modic type 1 edematous degenerative endplate change at L3-L4. Multilevel degenerative disc height loss, most pronounced at L3-L4. No cord compression. No abnormal cord signal. Conus medullaris terminates at the L1 level. Paravertebral soft tissues are unremarkable. L1-L2: No significant canal or foraminal narrowing. L2-L3: No significant canal or foraminal narrowing. L3-L4: Broad-based disc bulge and facet hypertrophy cause mild to moderate canal narrowing with effacement of the bilateral lateral recesses. Moderate bilateral foraminal narrowing. L4-L5: Central disc extrusion superimposed over broad-based disc bulge and facet hypertrophy cause severe canal narrowing and compression of the cauda equina. Moderate bilateral foraminal narrowing. L5-S1: Broad-based disc bulge and facet hypertrophy cause mild canal narrowing and moderate bilateral foraminal narrowing. IMPRESSION: 1. Central disc extrusion superimposed over broad-based disc bulge at L4-L5 contribute to severe canal narrowing and compression of the cauda equina. Recommend surgical consultation. 2. Additional spondylotic changes of the lumbar spine, as above. Electronically signed by: Caleb Clancy On 12/04/2020 22:15:27 PM
== END ==
LOC: M PLAIMG 07:47
PROVIDERS: ATTEND Nurse Practitioner Family
DX: R93.7 Abnormal findings on diagnostic imaging of other parts of musculoskeletal system (principal); M54.5 Low back pain

== ENCOUNTER → 2021-02-13 | Outpatient (REF) | payer OTHER ==
[~2021-02-13] MED LIST changes: +DOXY-443 PO; -DOXY1CAP62 PO
[2021-02-13 14:16] LABS: CREATININE, URINE 52.7 MG/DL; MALB URINE SIEMENS 14.3 MG/L; MAU/CREAT RATIO 27.1 MCG/MG (0.0-30.0)
== END ==
LOC: M LAB REF 13:11
PROVIDERS: ATTEND Nurse Practitioner Family
DX: E11.65 Type 2 diabetes mellitus with hyperglycemia (principal)

== ENCOUNTER → 2021-02-28 | Outpatient (REF) | payer OTHER | LOC: M LAB REF 12:41 | PROVIDERS: ATTEND Nurse Practitioner Family | DX: J06.9 Acute upper respiratory infection, unspecified (principal) ==

== ENCOUNTER → 2021-03-05 | Outpatient (CLI) | payer OTHER ==
--- NOTE | 2021-03-05 10:57 | REP ---
INDICATION: CERVICALGIA. COMPARISON: None. TECHNIQUE: Four views of the cervical spine were obtained. FINDINGS: The cervical alignment is normal. Mild disc space narrowing with large anterior and posterior osteophytes are noted at C5/6. No fracture or subluxation is identified. No significant abnormality is identified in the visualized lung apices. IMPRESSION: Moderate degenerative changes at C5/6 with a large anterior and posterior osteophytes. Consider CT or MRI for further evaluation. <Electronically signed by Niko Bills > 03/05/21 [id number]
--- NOTE | 2021-03-05 11:43 | REP ---
INDICATION: ACUTE UPPER RESPIRATORY INFECTION. COMPARISON: 01/27/2018 a portable exam TECHNIQUE: PA and lateral FINDINGS: The superior mediastinal structures are midline. The cardiac silhouette is unremarkable in size, shape, and position. The diaphragmatic surfaces of the lungs are regular, and the costophrenic angles are clear. The pulmonary herbert are clear. The imaged osseous structures are intact. IMPRESSION: There is no acute cardiopulmonary disease. <Electronically signed by Luis Selby > 03/05/21 [id number]
--- NOTE | 2021-03-05 11:47 | REP ---
INDICATION: CERVICALGIA. COMPARISON: 10/06/2015 TECHNIQUE: AP and lateral FINDINGS: There is marginal osteophyte formation seen bilaterally at every level significantly increased from the prior exam. The pedicles are again seen to be intact bilaterally. There is anterior lipping and anterior disc space narrowing at every level which is [id number]. The lower thoracic level was not imaged in the lateral view. Not all of the 12 vertebral body was imaged in the AP view. Vertebral body height and alignment is within normal limits. IMPRESSION: Chronic changes and exam limitations as described above. <Electronically signed by Luis Selby > 03/05/21 [id number]
== END ==
LOC: M PLAIMG 10:25
PROVIDERS: ATTEND Nurse Practitioner Family
DX: J06.9 Acute upper respiratory infection, unspecified (principal); M50.322 Other cervical disc degeneration at C5-C6 level; M25.78 Osteophyte, vertebrae; M48.02 Spinal stenosis, cervical region; M54.6 Pain in thoracic spine

== ENCOUNTER → 2021-08-26 | Outpatient (CLI) | payer OTHER ==
[~2021-08-26] MED LIST changes: +TIZA10TA PO; -TIZA4TAB4 PO
[2021-08-26 17:57] LABS: HEMOGLOBIN A1c 7.1 %
[2021-08-26 18:10] LABS: ALBUMIN 3.7 GM/DL (3.2-5.2); ALT/SGPT 25 U/L (12-78); BILIRUBIN,TOTAL 0.3 MG/DL (0.2-1.0); BLOOD UREA NITROGEN 17 MG/DL (7-18); CALCIUM LEVEL 8.6 MG/DL (8.5-10.1); CARBON DIOXIDE LEVEL 32 MEQ/L (21-32); CHLORIDE LEVEL 103 MEQ/L (98-107); CHOLESTEROL LEVEL 118 MG/DL (<200); CREATININE FOR GFR 1.08 MG/DL (0.70-1.30); GLOMERULAR FILTRATION RATE > 60.0 (>56); GLUCOSE, FASTING 115 MG/DL (70-100); HDL CHOLESTEROL 23 MG/DL (>40); LDL CHOLESTEROL 37 MG/DL (<100); NON-HDL-C 95 MG/DL; POTASSIUM SERUM 3.1 MEQ/L (3.5-5.1); SODIUM LEVEL 144 MEQ/L (136-145); TOTAL PROTEIN 7.1 GM/DL (6.4-8.2); TRIGLYCERIDES LEVEL 290 MG/DL (<150)
[2021-08-26 18:16] LABS: CREATININE, URINE 30.9 MG/DL; MALB URINE SIEMENS 5.4 MG/L; MAU/CREAT RATIO 17.4 MCG/MG (0.0-30.0)
== END ==
LOC: M PLALAB 14:47
PROVIDERS: ATTEND Nurse Practitioner Family
DX: E11.40 Type 2 diabetes mellitus with diabetic neuropathy, unspecified (principal)

== ENCOUNTER → 2021-08-26 | Outpatient (CLI) | payer OTHER | LOC: M PLALAB 14:44 | PROVIDERS: ATTEND Urology | DX: Z12.5 Encounter for screening for malignant neoplasm of prostate (principal) ==

== ENCOUNTER → 2021-08-26 | Outpatient (CLI) | payer OTHER ==
[2021-08-26 17:37] LABS: HEMATOCRIT 37.7 % (42.0-52.0); MEAN CORPUSCULAR HGB CONC 34.5 g/dl (32.0-36.5); MEAN CORPUSCULAR VOLUME 92.9 fl (80.0-96.0); PLATELET COUNT, AUTOMATED 232 10^3/uL (150-450); RED BLOOD COUNT 4.06 10^6/uL (4.30-6.10); WHITE BLOOD COUNT 5.2 10^3/uL (4.0-10.0)
[2021-08-26 18:12] LABS: ALBUMIN 3.6 GM/DL (3.2-5.2); ALT/SGPT 27 U/L (12-78); BILIRUBIN,TOTAL 0.3 MG/DL (0.2-1.0); BLOOD UREA NITROGEN 17 MG/DL (7-18); CALCIUM LEVEL 8.1 MG/DL (8.5-10.1); CARBON DIOXIDE LEVEL 33 MEQ/L (21-32); CHLORIDE LEVEL 102 MEQ/L (98-107); CREATININE FOR GFR 1.16 MG/DL (0.70-1.30); GLOMERULAR FILTRATION RATE > 60.0 (>56); GLUCOSE, FASTING 115 MG/DL (70-100); SODIUM LEVEL 141 MEQ/L (136-145)
[2021-08-28 21:07] LABS: TESTOSTERONE FREE (DIRECT) 5.4 pg/mL (7.2-24.0)
== END ==
LOC: M PLALAB 14:50
PROVIDERS: ATTEND Nurse Practitioner Women's Health
DX: R79.89 Other specified abnormal findings of blood chemistry (principal)

== ENCOUNTER 2021-10-29 17:12 | Emergency (ER) | payer OTHER ==
[~2021-10-29] VITALS: Ht 175.3 cm; Wt 144.6 kg
[2021-10-29 17:36] VITALS: BP 134/73
[2021-10-29] MEDS ORDERED: MORPHINE 4 MG/ML 1ML VIAL/SYRINGE IV ONE (18:55)
[2021-10-29] MEDS ORDERED: diazePAM 5MG TABLET PO ONE (20:40)
[2021-10-29] MEDS ORDERED: KETOROLAC 30 MG/ML 1ML VIAL IV ONE (20:40)
[2021-10-29] MEDS ORDERED: VALI5TAB PO (22:00)
== END 2021-10-29 22:09 | disposition home or self-care (01) ==
LOC: M ED 17:12
DX: M54.50 Low back pain, unspecified (principal); W01.0XXA Fall on same level from slipping, tripping and stumbling without subsequent striking against object, initial encounter; E11.9 Type 2 diabetes mellitus without complications; I25.2 Old myocardial infarction; Z91.041 Radiographic dye allergy status; Z91.040 Latex allergy status; Z79.4 Long term (current) use of insulin; Z79.51 Long term (current) use of inhaled steroids; Z79.899 Other long term (current) drug therapy; Y99.9 Unspecified external cause status
CPT/HCPCS: 72131; 72192; 96374; 96375; 99284; J1885; J2270

== ENCOUNTER → 2022-01-20 | Outpatient (REF) | payer OTHER ==
[~2022-01-20] MED LIST changes: +VALI5TAB PO
[2022-01-20 18:37] LABS: CREATININE, URINE 77.8 MG/DL; MALB URINE SIEMENS 5.4 MG/L; MAU/CREAT RATIO 6.9 MCG/MG (0.0-30.0)
== END ==
LOC: M LAB REF 16:52
PROVIDERS: ATTEND Nurse Practitioner Family
DX: E11.65 Type 2 diabetes mellitus with hyperglycemia (principal)

== ENCOUNTER 2022-06-12 09:57 | Emergency (ER) | payer OTHER ==
[~2022-06-12] VITALS: Ht 175.3 cm; Wt 150.0 kg
[2022-06-12 10:34] LABS: BASO % 0.1 % (0.0-1.0); EOS # 0.1 10^3/uL (0.0-0.5); EOS % 1.6 % (0.0-3.0); HEMATOCRIT 39.8 % (42.0-52.0); HEMOGLOBIN 12.9 g/dl (13.5-17.5); LYMPH # 0.7 10^3/uL (1.5-5.0); LYMPH % 9.9 % (24.0-44.0); MEAN CORPUSCULAR HEMOGLOBIN 30.6 pg (27.0-33.0); MEAN CORPUSCULAR HGB CONC 32.4 g/dl (32.0-36.5); MEAN CORPUSCULAR VOLUME 94.3 fl (80.0-96.0); MONO # 0.4 10^3/uL (0.0-0.8); NEUTROPHILS # 6.1 10^3/uL (1.5-8.5); NEUTROPHILS % 82.4 % (36.0-66.0); PLATELET COUNT, AUTOMATED 256 10^3/uL (150-450); RED BLOOD COUNT 4.22 10^6/uL (4.30-6.10); WHITE BLOOD COUNT 7.4 10^3/uL (4.0-10.0)
[2022-06-12 10:47] LABS: INR 1.04; PROTHROMBIN TIME 13.8 SECONDS (12.5-14.5)
[2022-06-12 10:48] LABS: PARTIAL THROMBOPLASTIN TIME 29.1 SECONDS (24.8-34.2)
[2022-06-12 11:10] LABS: FREE T4 0.78 NG/DL (0.89-1.76); THYROID STIMULATING HORMONE 1.213 uIU/ML (0.55-4.78)
[2022-06-12 11:16] LABS: LIPASE 16 U/L (12-53)
[2022-06-12 11:17] LABS: CK-MB VALUE MASS 3.4 NG/ML (<3.6)
[2022-06-12 11:18] LABS: ALBUMIN 3.5 G/DL (3.2-5.2); ALKALINE PHOSPHATASE 75 U/L (46-116); ALT/SGPT 32 U/L (7.0-40); AST/SGOT 24 U/L (<34); BILIRUBIN,DIRECT 0.2 MG/DL (<0.4); BILIRUBIN,TOTAL 0.6 MG/DL (0.3-1.2); BLOOD UREA NITROGEN 16 MG/DL (9-23); CALCIUM LEVEL 8.6 MG/DL (8.5-10.1); CARBON DIOXIDE LEVEL 34 MMOL/L (20-31); CHLORIDE LEVEL 102 MMOL/L (98-107); CPK CREATINE PHOSPHOKINASE 222 U/L (46-171); GLOMERULAR FILTRATION RATE > 60.0 (>56); GLUCOSE, FASTING 243 MG/DL (60-100); MB/CK RELATIVE INDEX 1.53 (< OR =4); POTASSIUM SERUM 3.9 MMOL/L (3.5-5.1); SODIUM LEVEL 146 MMOL/L (136-145); TOTAL PROTEIN 7.3 G/DL (5.7-8.2)
[2022-06-12 12:10] LABS: CK-MB VALUE MASS 4.8 NG/ML (<3.6)
[2022-06-12 12:11] LABS: MB/CK RELATIVE INDEX 2.16 (< OR =4)
[2022-06-12] MEDS ORDERED: TORSEMIDE 20 MG TAB PO ONE (12:45)
[2022-06-12 13:21] VITALS: BP 165/78
== END 2022-06-12 13:31 | disposition home or self-care (01) ==
LOC: EDBD 09:57 → M ED 09:57
DX: R07.9 Chest pain, unspecified (principal); G47.33 Obstructive sleep apnea (adult) (pediatric); E78.5 Hyperlipidemia, unspecified; I10 Essential (primary) hypertension; I25.2 Old myocardial infarction; F17.200 Nicotine dependence, unspecified, uncomplicated; F10.10 Alcohol abuse, uncomplicated; Z86.79 Personal history of other diseases of the circulatory system; Z88.2 Allergy status to sulfonamides; Z91.040 Latex allergy status; Z79.51 Long term (current) use of inhaled steroids; Z79.811 Long term (current) use of aromatase inhibitors; Z79.4 Long term (current) use of insulin; Z79.899 Other long term (current) drug therapy

== ENCOUNTER 2022-06-17 00:31 | Inpatient (IN) | payer OTHER ==
[~2022-06-17] VITALS: Ht 182.9 cm; Wt 148.0 kg
[2022-06-17 01:53] LABS: BASO % 0.3 % (0.0-1.0); EOS # 0.2 10^3/uL (0.0-0.5); HEMATOCRIT 39.9 % (42.0-52.0); LYMPH # 1.1 10^3/uL (1.5-5.0); LYMPH % 11.8 % (24.0-44.0); MEAN CORPUSCULAR HEMOGLOBIN 30.6 pg (27.0-33.0); MEAN CORPUSCULAR HGB CONC 32.6 g/dl (32.0-36.5); MEAN CORPUSCULAR VOLUME 93.9 fl (80.0-96.0); MONO # 0.6 10^3/uL (0.0-0.8); MONO % 6.2 % (2.0-8.0); NEUTROPHILS # 7.3 10^3/uL (1.5-8.5); NEUTROPHILS % 79.4 % (36.0-66.0); PLATELET COUNT, AUTOMATED 293 10^3/uL (150-450); RED BLOOD COUNT 4.25 10^6/uL (4.30-6.10); WHITE BLOOD COUNT 9.2 10^3/uL (4.0-10.0)
[2022-06-17 02:52] LABS: ALBUMIN 2.9 G/DL (3.2-5.2); ALKALINE PHOSPHATASE 78 U/L (46-116); ALT/SGPT 51 U/L (7.0-40); AST/SGOT 49 U/L (<34); BILIRUBIN,DIRECT 0.2 MG/DL (<0.4); BILIRUBIN,TOTAL 0.5 MG/DL (0.3-1.2); BLOOD UREA NITROGEN 26 MG/DL (9-23); CALCIUM LEVEL 9.3 MG/DL (8.5-10.1); CARBON DIOXIDE LEVEL 37 MMOL/L (20-31); CHLORIDE LEVEL 98 MMOL/L (98-107); CREATININE FOR GFR 1.08 MG/DL (0.70-1.30); FREE T4 0.87 NG/DL (0.89-1.76); GLOMERULAR FILTRATION RATE > 60.0 (>56); GLUCOSE, FASTING 69 MG/DL (60-100); POTASSIUM SERUM 2.9 MMOL/L (3.5-5.1); SODIUM LEVEL 143 MMOL/L (136-145); THYROID STIMULATING HORMONE 0.829 uIU/ML (0.55-4.78)
[2022-06-17] MEDS ORDERED: KCL 10MEQ/100ML SWI (KRUN) 10 MEQ in IV 1 EA IV ONE (02:55)
[2022-06-17] MEDS ORDERED: POTASSIUM CHLORIDE 10MEQ SR TABLET PO ONE ×2 (03:00→12:05)
[2022-06-17] MEDS ORDERED: GLUCAGON INJ 1MG VIAL SC PRN (05:10)
[2022-06-17] MEDS ORDERED: DEXTROSE 50% 50ML SYRINGE IV PRN (05:10)
[2022-06-17] MEDS ORDERED: GLUCOSE 4GM CHEW TABLET PO PRN (05:10)
[2022-06-17 06:06] LABS: RSV AMPLIFICATION NEGATIVE (NEGATIVE)
[2022-06-17] MEDS ORDERED: SEMA0.257 SQ (06:35)
[2022-06-17] MEDS ORDERED: LISI10TA22 PO (06:35)
[2022-06-17] MEDS ORDERED: GABA600T4 PO (06:35)
[2022-06-17] MEDS ORDERED: ERGO500029 PO (06:35)
[2022-06-17] MEDS ORDERED: SPIR-10 PO (06:35)
[2022-06-17] MEDS ORDERED: ATOR1TAB19 PO (06:35)
[2022-06-17] MEDS ORDERED: OXYC10TA12 PO (06:35)
[2022-06-17] MEDS ORDERED: MECL-58 PO (06:35)
[2022-06-17] MEDS ORDERED: FARX1TAB3 PO (06:35)
[2022-06-17] MEDS ORDERED: TORS20TA2 PO ×2 (06:35)
[2022-06-17] MEDS ORDERED: VITMTA PO (06:35)
[2022-06-17] MEDS ORDERED: ALLO100T PO (06:35)
[2022-06-17] MEDS ORDERED: CARV12.5 PO (06:35)
[2022-06-17] MEDS ORDERED: FLOM0.4C39 PO (06:36)
[2022-06-17] MEDS ORDERED: HOME MED LIST COMPLETE! XX SCH (06:40)
[2022-06-17 06:48] LABS: MAGNESIUM LEVEL 1.7 MG/DL (1.8-2.4)
[2022-06-17] MEDS ORDERED: MAG SULF 1GM/100ML (MAG RUN) 1 GM in IV 1 EA IV ONE (07:00)
[2022-06-17] MEDS ORDERED: MECLIZINE 25 MG TABLET PO PRN (07:05)
[2022-06-17 07:51] LABS: HEMOGLOBIN 11.9 g/dl (13.5-17.5); MEAN CORPUSCULAR HEMOGLOBIN 30.3 pg (27.0-33.0); MEAN CORPUSCULAR HGB CONC 32.2 g/dl (32.0-36.5); MEAN CORPUSCULAR VOLUME 94.1 fl (80.0-96.0); PLATELET COUNT, AUTOMATED 275 10^3/uL (150-450); RED BLOOD COUNT 3.93 10^6/uL (4.30-6.10); WHITE BLOOD COUNT 8.2 10^3/uL (4.0-10.0)
[2022-06-17] MEDS: CARVedilol 12.5 MG TAB PO SCH ×2 (08:08→20:46)
[2022-06-17] MEDS: ATORVASTATIN 10 MG TAB PO SCH (08:08)
[2022-06-17] MEDS: allopurinoL 100 MG TAB PO SCH (08:08)
[2022-06-17] MEDS: GABAPENTIN 300 MG CAP PO SCH ×3 (08:08→20:47)
[2022-06-17] MEDS: OMEPRAZOLE 20MG CAP PO SCH (08:08)
[2022-06-17] MEDS: INSULIN LISPRO (NovoLOG) PER UNIT SC SCH ×4 (08:09→20:43)
[2022-06-17] MEDS: SPIRONOLACTONE 12.5MG PER 1/2 TABLET PO SCH (08:09)
[2022-06-17] MEDS: ENOXAPARIN 40MG/0.4ML SYRINGE (J1650 PER 10MG) SC SCH ×2 (08:09→20:44)
[2022-06-17 08:23] LABS: INR 1.08; PROTHROMBIN TIME 14.2 SECONDS (12.5-14.5)
[2022-06-17 08:24] LABS: PARTIAL THROMBOPLASTIN TIME 30.5 SECONDS (24.8-34.2)
[2022-06-17 08:25] LABS: ALBUMIN 2.5 G/DL (3.2-5.2); ALKALINE PHOSPHATASE 72 U/L (46-116); ALT/SGPT 45 U/L (7.0-40); AST/SGOT 36 U/L (<34); BILIRUBIN,TOTAL 0.6 MG/DL (0.3-1.2); BLOOD UREA NITROGEN 27 MG/DL (9-23); CALCIUM LEVEL 8.9 MG/DL (8.5-10.1); CARBON DIOXIDE LEVEL 39 MMOL/L (20-31); CHLORIDE LEVEL 98 MMOL/L (98-107); GLOMERULAR FILTRATION RATE > 60.0 (>56); GLUCOSE, FASTING 150 MG/DL (60-100); POTASSIUM SERUM 3.3 MMOL/L (3.5-5.1); SODIUM LEVEL 143 MMOL/L (136-145); TOTAL PROTEIN 6.3 G/DL (5.7-8.2)
[2022-06-17] MEDS ORDERED: ALBUTEROL 90 MCG/ACT 8GM HFA INHALER INH PRN (12:05)
[2022-06-17 15:10] VITALS: BP 149/80
[2022-06-17 20:06] VITALS: BP 162/73
[2022-06-17] MEDS: AMITRIPTYLINE 25MG TABLET PO SCH (20:44)
[2022-06-17] MEDS: tiZANidine 4 MG TAB PO PRN (20:44)
[2022-06-17] MEDS: CETIRIZINE (ZyrTEC) 10 MG TAB PO SCH (20:46)
[2022-06-17] MEDS: TAMSULOSIN 0.4 MG CAP PO SCH (20:46)
[2022-06-17] MEDS: ACETAMINOPHEN TAB 650MG DOSE (2X325MG) PO PRN (20:48)
[2022-06-18 06:14] VITALS: BP 147/75
[2022-06-18 06:14] LABS: HEMATOCRIT 36.7 % (42.0-52.0); HEMOGLOBIN 11.8 g/dl (13.5-17.5); MEAN CORPUSCULAR HEMOGLOBIN 30.6 pg (27.0-33.0); MEAN CORPUSCULAR HGB CONC 32.2 g/dl (32.0-36.5); MEAN CORPUSCULAR VOLUME 95.1 fl (80.0-96.0); PLATELET COUNT, AUTOMATED 292 10^3/uL (150-450); RED BLOOD COUNT 3.86 10^6/uL (4.30-6.10)
[2022-06-18 07:44] LABS: ALBUMIN 2.5 G/DL (3.2-5.2); ALKALINE PHOSPHATASE 82 U/L (46-116); ALT/SGPT 39 U/L (7.0-40); AST/SGOT 29 U/L (<34); BILIRUBIN,TOTAL 0.6 MG/DL (0.3-1.2); BLOOD UREA NITROGEN 24 MG/DL (9-23); CALCIUM LEVEL 8.9 MG/DL (8.5-10.1); CARBON DIOXIDE LEVEL 36 MMOL/L (20-31); CHLORIDE LEVEL 98 MMOL/L (98-107); CREATININE FOR GFR 0.97 MG/DL (0.70-1.30); GLOMERULAR FILTRATION RATE > 60.0 (>56); GLUCOSE, FASTING 282 MG/DL (60-100); POTASSIUM SERUM 3.7 MMOL/L (3.5-5.1); SODIUM LEVEL 141 MMOL/L (136-145); TOTAL PROTEIN 6.5 G/DL (5.7-8.2)
[2022-06-18] MEDS: GABAPENTIN 300 MG CAP PO SCH ×3 (09:37→21:47)
[2022-06-18] MEDS: SPIRONOLACTONE 12.5MG PER 1/2 TABLET PO SCH (09:37)
[2022-06-18] MEDS: CARVedilol 12.5 MG TAB PO SCH ×2 (09:38→21:51)
[2022-06-18] MEDS: ENOXAPARIN 40MG/0.4ML SYRINGE (J1650 PER 10MG) SC SCH ×2 (09:38→21:52)
[2022-06-18] MEDS: OMEPRAZOLE 20MG CAP PO SCH (09:38)
[2022-06-18] MEDS: ATORVASTATIN 10 MG TAB PO SCH (09:38)
[2022-06-18] MEDS: allopurinoL 100 MG TAB PO SCH (09:38)
[2022-06-18] MEDS: INSULIN LISPRO (NovoLOG) PER UNIT SC SCH ×4 (09:39→21:52)
[2022-06-18 14:00] VITALS: BP 137/74
[2022-06-18 19:57] VITALS: BP 143/71
[2022-06-18 20:33] LABS: HEMOGLOBIN A1c 7.5 % (4.0-6.0)
[2022-06-18] MEDS ORDERED: LEVEMIR (INSULIN DETEMIR) 1 UNITS/0.01ML SC SCH (21:00)
[2022-06-18] MEDS: POTASSIUM CHLORIDE 10MEQ SR TABLET PO SCH (21:49)
[2022-06-18] MEDS: TORSEMIDE 20 MG TAB PO SCH (21:50)
[2022-06-18] MEDS: TAMSULOSIN 0.4 MG CAP PO SCH (21:50)
[2022-06-18] MEDS: ACETAMINOPHEN TAB 650MG DOSE (2X325MG) PO PRN (21:50)
[2022-06-18] MEDS: AMITRIPTYLINE 25MG TABLET PO SCH (21:50)
[2022-06-18] MEDS: CETIRIZINE (ZyrTEC) 10 MG TAB PO SCH (21:51)
[2022-06-19 05:50] VITALS: BP 143/72
[2022-06-19 06:15] LABS: HEMATOCRIT 35.2 % (42.0-52.0); HEMOGLOBIN 10.9 g/dl (13.5-17.5); MEAN CORPUSCULAR HEMOGLOBIN 29.3 pg (27.0-33.0); MEAN CORPUSCULAR VOLUME 94.6 fl (80.0-96.0); PLATELET COUNT, AUTOMATED 279 10^3/uL (150-450); RED BLOOD COUNT 3.72 10^6/uL (4.30-6.10); WHITE BLOOD COUNT 6.8 10^3/uL (4.0-10.0)
[2022-06-19 06:35] LABS: ALBUMIN 2.4 G/DL (3.2-5.2); ALKALINE PHOSPHATASE 77 U/L (46-116); ALT/SGPT 33 U/L (7.0-40); AST/SGOT 23 U/L (<34); BILIRUBIN,TOTAL 0.4 MG/DL (0.3-1.2); BLOOD UREA NITROGEN 24 MG/DL (9-23); CALCIUM LEVEL 8.2 MG/DL (8.5-10.1); CARBON DIOXIDE LEVEL 38 MMOL/L (20-31); CHLORIDE LEVEL 98 MMOL/L (98-107); CREATININE FOR GFR 0.95 MG/DL (0.70-1.30); GLOMERULAR FILTRATION RATE > 60.0 (>56); GLUCOSE, FASTING 310 MG/DL (60-100); POTASSIUM SERUM 3.6 MMOL/L (3.5-5.1); SODIUM LEVEL 140 MMOL/L (136-145); TOTAL PROTEIN 6.3 G/DL (5.7-8.2)
[2022-06-19] MEDS: ENOXAPARIN 40MG/0.4ML SYRINGE (J1650 PER 10MG) SC SCH ×2 (08:37→21:12)
[2022-06-19] MEDS: INSULIN LISPRO (NovoLOG) PER UNIT SC SCH ×4 (08:37→21:13)
[2022-06-19] MEDS: POTASSIUM CHLORIDE 10MEQ SR TABLET PO SCH ×2 (08:39→21:11)
[2022-06-19] MEDS: SPIRONOLACTONE 12.5MG PER 1/2 TABLET PO SCH (08:39)
[2022-06-19] MEDS: allopurinoL 100 MG TAB PO SCH (08:40)
[2022-06-19] MEDS: ATORVASTATIN 10 MG TAB PO SCH (08:40)
[2022-06-19] MEDS: OMEPRAZOLE 20MG CAP PO SCH (08:40)
[2022-06-19] MEDS: TORSEMIDE 20 MG TAB PO SCH ×2 (08:40→16:51)
[2022-06-19] MEDS: GABAPENTIN 300 MG CAP PO SCH ×3 (08:41→21:11)
[2022-06-19] MEDS: CARVedilol 12.5 MG TAB PO SCH ×2 (08:42→21:10)
[2022-06-19] MEDS ORDERED: LEVEMIR (INSULIN DETEMIR) 1 UNITS/0.01ML SC SCH (09:00)
[2022-06-19 14:00] VITALS: BP 153/87
[2022-06-19 20:50] VITALS: BP 153/81
[2022-06-19] MEDS: AMITRIPTYLINE 25MG TABLET PO SCH (21:11)
[2022-06-19] MEDS: TAMSULOSIN 0.4 MG CAP PO SCH (21:11)
[2022-06-19] MEDS: CETIRIZINE (ZyrTEC) 10 MG TAB PO SCH (21:11)
[2022-06-19] MEDS: LEVEMIR (INSULIN DETEMIR) 1 UNITS/0.01ML SC SCH (21:12)
[2022-06-19] MEDS: oxyCODONE 5MG TAB PO PRN (21:15)
[2022-06-20 05:32] VITALS: BP 153/80
[2022-06-20 06:15] LABS: HEMATOCRIT 34.7 % (42.0-52.0); HEMOGLOBIN 11.3 g/dl (13.5-17.5); MEAN CORPUSCULAR HEMOGLOBIN 30.4 pg (27.0-33.0); MEAN CORPUSCULAR HGB CONC 32.6 g/dl (32.0-36.5); MEAN CORPUSCULAR VOLUME 93.3 fl (80.0-96.0); PLATELET COUNT, AUTOMATED 291 10^3/uL (150-450); RED BLOOD COUNT 3.72 10^6/uL (4.30-6.10); WHITE BLOOD COUNT 7.3 10^3/uL (4.0-10.0)
[2022-06-20 06:47] LABS: ALBUMIN 2.5 G/DL (3.2-5.2); ALKALINE PHOSPHATASE 82 U/L (46-116); ALT/SGPT 34 U/L (7.0-40); AST/SGOT 29 U/L (<34); BILIRUBIN,TOTAL 0.5 MG/DL (0.3-1.2); BLOOD UREA NITROGEN 23 MG/DL (9-23); CALCIUM LEVEL 8.7 MG/DL (8.5-10.1); CARBON DIOXIDE LEVEL > 40.0 MMOL/L (20-31); CHLORIDE LEVEL 94 MMOL/L (98-107); CREATININE FOR GFR 0.98 MG/DL (0.70-1.30); GLOMERULAR FILTRATION RATE > 60.0 (>56); GLUCOSE, FASTING 238 MG/DL (60-100); POTASSIUM SERUM 3.6 MMOL/L (3.5-5.1); SODIUM LEVEL 139 MMOL/L (136-145); TOTAL PROTEIN 6.5 G/DL (5.7-8.2)
[2022-06-20] MEDS: INSULIN LISPRO (NovoLOG) PER UNIT SC SCH ×4 (08:16→21:07)
[2022-06-20] MEDS: LEVEMIR (INSULIN DETEMIR) 1 UNITS/0.01ML SC SCH ×2 (08:16→21:07)
[2022-06-20] MEDS: GABAPENTIN 300 MG CAP PO SCH ×3 (08:17→21:05)
[2022-06-20] MEDS: POTASSIUM CHLORIDE 10MEQ SR TABLET PO SCH ×2 (08:17→21:06)
[2022-06-20] MEDS: ENOXAPARIN 40MG/0.4ML SYRINGE (J1650 PER 10MG) SC SCH ×2 (08:17→21:07)
[2022-06-20] MEDS: TORSEMIDE 20 MG TAB PO SCH ×2 (08:17→16:47)
[2022-06-20] MEDS: ATORVASTATIN 10 MG TAB PO SCH (08:18)
[2022-06-20] MEDS: allopurinoL 100 MG TAB PO SCH (08:18)
[2022-06-20] MEDS: OMEPRAZOLE 20MG CAP PO SCH (08:18)
[2022-06-20] MEDS: SPIRONOLACTONE 12.5MG PER 1/2 TABLET PO SCH (08:18)
[2022-06-20] MEDS: CARVedilol 12.5 MG TAB PO SCH ×2 (08:22→21:06)
[2022-06-20 14:00] VITALS: BP 144/76
[2022-06-20] MEDS: TAMSULOSIN 0.4 MG CAP PO SCH (21:05)
[2022-06-20] MEDS: CETIRIZINE (ZyrTEC) 10 MG TAB PO SCH (21:06)
[2022-06-20] MEDS: AMITRIPTYLINE 25MG TABLET PO SCH (21:06)
[2022-06-20] MEDS: ACETAMINOPHEN TAB 650MG DOSE (2X325MG) PO PRN (21:10)
[2022-06-21 05:40] VITALS: BP 157/77
[2022-06-21 06:16] LABS: HEMATOCRIT 36.3 % (42.0-52.0); HEMOGLOBIN 11.7 g/dl (13.5-17.5); MEAN CORPUSCULAR HGB CONC 32.2 g/dl (32.0-36.5); MEAN CORPUSCULAR VOLUME 93.1 fl (80.0-96.0); PLATELET COUNT, AUTOMATED 314 10^3/uL (150-450); WHITE BLOOD COUNT 7.2 10^3/uL (4.0-10.0)
[2022-06-21 06:41] LABS: ALBUMIN 2.4 G/DL (3.2-5.2); ALKALINE PHOSPHATASE 82 U/L (46-116); ALT/SGPT 36 U/L (7.0-40); AST/SGOT 33 U/L (<34); BILIRUBIN,TOTAL 0.4 MG/DL (0.3-1.2); BLOOD UREA NITROGEN 23 MG/DL (9-23); CALCIUM LEVEL 8.4 MG/DL (8.5-10.1); CARBON DIOXIDE LEVEL > 40.0 MMOL/L (20-31); CHLORIDE LEVEL 96 MMOL/L (98-107); CREATININE FOR GFR 0.88 MG/DL (0.70-1.30); GLOMERULAR FILTRATION RATE > 60.0 (>56); GLUCOSE, FASTING 344 MG/DL (60-100); POTASSIUM SERUM 3.7 MMOL/L (3.5-5.1); SODIUM LEVEL 139 MMOL/L (136-145); TOTAL PROTEIN 6.5 G/DL (5.7-8.2)
[2022-06-21] MEDS: LEVEMIR (INSULIN DETEMIR) 1 UNITS/0.01ML SC SCH (08:42)
[2022-06-21] MEDS: INSULIN LISPRO (NovoLOG) PER UNIT SC SCH ×4 (08:43→21:29)
[2022-06-21] MEDS: SPIRONOLACTONE 12.5MG PER 1/2 TABLET PO SCH (08:45)
[2022-06-21] MEDS: oxyCODONE 5MG TAB PO PRN ×3 (08:45→21:35)
[2022-06-21] MEDS: OMEPRAZOLE 20MG CAP PO SCH (08:45)
[2022-06-21] MEDS: POTASSIUM CHLORIDE 10MEQ SR TABLET PO SCH ×2 (08:46→21:30)
[2022-06-21] MEDS: ATORVASTATIN 10 MG TAB PO SCH (08:48)
[2022-06-21] MEDS: GABAPENTIN 300 MG CAP PO SCH ×3 (08:48→21:28)
[2022-06-21] MEDS: CARVedilol 12.5 MG TAB PO SCH ×2 (08:48→21:30)
[2022-06-21] MEDS: TORSEMIDE 20 MG TAB PO SCH ×2 (08:49→16:59)
[2022-06-21] MEDS: allopurinoL 100 MG TAB PO SCH (08:49)
[2022-06-21] MEDS: ENOXAPARIN 40MG/0.4ML SYRINGE (J1650 PER 10MG) SC SCH ×2 (08:49→21:30)
[2022-06-21] MEDS: tiZANidine 4 MG TAB PO PRN ×2 (09:57→17:00)
[2022-06-21] MEDS ORDERED: TORS20TA2 PO (17:24)
[2022-06-21] MEDS ORDERED: POTA-151 PO (17:24)
[2022-06-21] MEDS ORDERED: LEVEMIR (INSULIN DETEMIR) 1 UNITS/0.01ML SC SCH ×2 (21:00)
[2022-06-21] MEDS: TAMSULOSIN 0.4 MG CAP PO SCH (21:28)
[2022-06-21] MEDS: AMITRIPTYLINE 25MG TABLET PO SCH (21:28)
[2022-06-21] MEDS: CETIRIZINE (ZyrTEC) 10 MG TAB PO SCH (21:31)
[2022-06-21] MEDS: ACETAMINOPHEN TAB 650MG DOSE (2X325MG) PO PRN (21:31)
[2022-06-22 04:40] VITALS: BP 145/63
[2022-06-22 06:15] LABS: HEMATOCRIT 34.3 % (42.0-52.0); HEMOGLOBIN 11.2 g/dl (13.5-17.5); MEAN CORPUSCULAR HEMOGLOBIN 29.8 pg (27.0-33.0); MEAN CORPUSCULAR HGB CONC 32.7 g/dl (32.0-36.5); MEAN CORPUSCULAR VOLUME 91.2 fl (80.0-96.0); PLATELET COUNT, AUTOMATED 312 10^3/uL (150-450); RED BLOOD COUNT 3.76 10^6/uL (4.30-6.10)
[2022-06-22 06:53] LABS: ALBUMIN 2.6 G/DL (3.2-5.2); ALKALINE PHOSPHATASE 76 U/L (46-116); ALT/SGPT 29 U/L (7.0-40); AST/SGOT 24 U/L (<34); BILIRUBIN,TOTAL 0.5 MG/DL (0.3-1.2); BLOOD UREA NITROGEN 21 MG/DL (9-23); CALCIUM LEVEL 8.5 MG/DL (8.5-10.1); CARBON DIOXIDE LEVEL 38 MMOL/L (20-31); CHLORIDE LEVEL 90 MMOL/L (98-107); GLOMERULAR FILTRATION RATE > 60.0 (>56); GLUCOSE, FASTING 406 MG/DL (60-100); POTASSIUM SERUM 3.4 MMOL/L (3.5-5.1); SODIUM LEVEL 133 MMOL/L (136-145); TOTAL PROTEIN 7.1 G/DL (5.7-8.2)
[2022-06-22] MEDS: INSULIN LISPRO (NovoLOG) PER UNIT SC SCH ×7 (07:46→21:46)
[2022-06-22] MEDS: oxyCODONE 5MG TAB PO PRN ×2 (07:48→21:44)
[2022-06-22] MEDS: tiZANidine 4 MG TAB PO PRN (07:48)
[2022-06-22] MEDS: LEVEMIR (INSULIN DETEMIR) 1 UNITS/0.01ML SC SCH (08:31)
[2022-06-22] MEDS: TORSEMIDE 20 MG TAB PO SCH ×2 (08:32→16:02)
[2022-06-22] MEDS: ATORVASTATIN 10 MG TAB PO SCH (08:32)
[2022-06-22] MEDS: allopurinoL 100 MG TAB PO SCH (08:32)
[2022-06-22] MEDS: CARVedilol 12.5 MG TAB PO SCH ×2 (08:35→21:47)
[2022-06-22] MEDS: GABAPENTIN 300 MG CAP PO SCH ×3 (08:35→21:44)
[2022-06-22] MEDS: POTASSIUM CHLORIDE 10MEQ SR TABLET PO SCH ×2 (08:35→21:44)
[2022-06-22] MEDS: OMEPRAZOLE 20MG CAP PO SCH (08:36)
[2022-06-22] MEDS: ENOXAPARIN 40MG/0.4ML SYRINGE (J1650 PER 10MG) SC SCH ×2 (08:36→21:46)
[2022-06-22] MEDS: SPIRONOLACTONE 12.5MG PER 1/2 TABLET PO SCH (08:37)
[2022-06-22] MEDS ORDERED: LEVEMIR (INSULIN DETEMIR) 1 UNITS/0.01ML SC SCH ×3 (09:00→21:00)
[2022-06-22] MEDS: DAPAGLIFLOZIN PROPANEDIOL 10MG TABLET (FARXIGA) PO SCH (16:02)
[2022-06-22] MEDS: CETIRIZINE (ZyrTEC) 10 MG TAB PO SCH (21:44)
[2022-06-22] MEDS: AMITRIPTYLINE 25MG TABLET PO SCH (21:44)
[2022-06-22] MEDS: TAMSULOSIN 0.4 MG CAP PO SCH (21:44)
[2022-06-22 23:58] VITALS: O2SAT 93
[2022-06-23 06:00] VITALS: BP 106/63
[2022-06-23 06:26] LABS: HEMATOCRIT 35.4 % (42.0-52.0); HEMOGLOBIN 11.5 g/dl (13.5-17.5); MEAN CORPUSCULAR HEMOGLOBIN 29.9 pg (27.0-33.0); MEAN CORPUSCULAR HGB CONC 32.5 g/dl (32.0-36.5); MEAN CORPUSCULAR VOLUME 92.2 fl (80.0-96.0); PLATELET COUNT, AUTOMATED 337 10^3/uL (150-450); RED BLOOD COUNT 3.84 10^6/uL (4.30-6.10)
[2022-06-23 06:29] VITALS: O2SAT 93
[2022-06-23 07:02] LABS: ALBUMIN 2.3 G/DL (3.2-5.2); ALKALINE PHOSPHATASE 78 U/L (46-116); ALT/SGPT 34 U/L (7.0-40); AST/SGOT 35 U/L (<34); BILIRUBIN,TOTAL 0.3 MG/DL (0.3-1.2); BLOOD UREA NITROGEN 26 MG/DL (9-23); CALCIUM LEVEL 8.6 MG/DL (8.5-10.1); CARBON DIOXIDE LEVEL 39 MMOL/L (20-31); CHLORIDE LEVEL 94 MMOL/L (98-107); CREATININE FOR GFR 1.03 MG/DL (0.70-1.30); GLOMERULAR FILTRATION RATE > 60.0 (>56); GLUCOSE, FASTING 365 MG/DL (60-100); POTASSIUM SERUM 4.2 MMOL/L (3.5-5.1); SODIUM LEVEL 138 MMOL/L (136-145); TOTAL PROTEIN 6.5 G/DL (5.7-8.2)
[2022-06-23] MEDS: LEVEMIR (INSULIN DETEMIR) 1 UNITS/0.01ML SC SCH ×2 (09:18→21:34)
[2022-06-23] MEDS: tiZANidine 4 MG TAB PO PRN ×2 (09:19→17:04)
[2022-06-23] MEDS: INSULIN LISPRO (NovoLOG) PER UNIT SC SCH ×7 (09:19→21:35)
[2022-06-23] MEDS: GABAPENTIN 300 MG CAP PO SCH ×3 (09:20→21:03)
[2022-06-23] MEDS: oxyCODONE 5MG TAB PO PRN ×3 (09:20→21:36)
[2022-06-23] MEDS: OMEPRAZOLE 20MG CAP PO SCH (09:20)
[2022-06-23] MEDS: POTASSIUM CHLORIDE 10MEQ SR TABLET PO SCH ×2 (09:21→21:02)
[2022-06-23] MEDS: allopurinoL 100 MG TAB PO SCH (09:21)
[2022-06-23] MEDS: DAPAGLIFLOZIN PROPANEDIOL 10MG TABLET (FARXIGA) PO SCH (09:21)
[2022-06-23] MEDS: TORSEMIDE 20 MG TAB PO SCH ×2 (09:21→17:04)
[2022-06-23] MEDS: ATORVASTATIN 10 MG TAB PO SCH (09:24)
[2022-06-23] MEDS: CARVedilol 12.5 MG TAB PO SCH ×2 (09:24→21:03)
[2022-06-23] MEDS: SPIRONOLACTONE 12.5MG PER 1/2 TABLET PO SCH (09:25)
[2022-06-23] MEDS: ENOXAPARIN 40MG/0.4ML SYRINGE (J1650 PER 10MG) SC SCH ×2 (09:26→21:02)
[2022-06-23] MEDS: SEMAGLUTIDE 0.25 MG/0.4 ML SC SCH (21:01)
[2022-06-23] MEDS: AMITRIPTYLINE 25MG TABLET PO SCH (21:02)
[2022-06-23] MEDS: CETIRIZINE (ZyrTEC) 10 MG TAB PO SCH (21:02)
[2022-06-23] MEDS: TAMSULOSIN 0.4 MG CAP PO SCH (21:03)
[2022-06-24 01:06] VITALS: O2SAT 95
[2022-06-24 07:02] VITALS: BP 131/65
[2022-06-24] MEDS: INSULIN LISPRO (NovoLOG) PER UNIT SC SCH ×7 (08:26→20:36)
[2022-06-24] MEDS: GABAPENTIN 300 MG CAP PO SCH ×3 (08:27→20:37)
[2022-06-24] MEDS: CARVedilol 12.5 MG TAB PO SCH ×2 (08:27→20:37)
[2022-06-24] MEDS: ENOXAPARIN 40MG/0.4ML SYRINGE (J1650 PER 10MG) SC SCH ×2 (08:27→20:37)
[2022-06-24] MEDS: allopurinoL 100 MG TAB PO SCH (08:27)
[2022-06-24] MEDS: DAPAGLIFLOZIN PROPANEDIOL 10MG TABLET (FARXIGA) PO SCH (08:27)
[2022-06-24] MEDS: ATORVASTATIN 10 MG TAB PO SCH (08:28)
[2022-06-24] MEDS: POTASSIUM CHLORIDE 10MEQ SR TABLET PO SCH ×2 (08:28→20:37)
[2022-06-24] MEDS: OMEPRAZOLE 20MG CAP PO SCH (08:28)
[2022-06-24] MEDS: TORSEMIDE 20 MG TAB PO SCH ×2 (08:29→17:05)
[2022-06-24] MEDS: LEVEMIR (INSULIN DETEMIR) 1 UNITS/0.01ML SC SCH ×2 (08:29→20:36)
[2022-06-24] MEDS: SPIRONOLACTONE 12.5MG PER 1/2 TABLET PO SCH (08:30)
[2022-06-24 12:09] VITALS: O2SAT 96
[2022-06-24] MEDS: oxyCODONE 5MG TAB PO PRN ×2 (18:33→22:57)
[2022-06-24 20:22] VITALS: BP 110/62
[2022-06-24] MEDS: TAMSULOSIN 0.4 MG CAP PO SCH (20:36)
[2022-06-24] MEDS: CETIRIZINE (ZyrTEC) 10 MG TAB PO SCH (20:36)
[2022-06-24] MEDS: AMITRIPTYLINE 25MG TABLET PO SCH (20:37)
[2022-06-25 00:35] VITALS: O2SAT 95
[2022-06-25 06:24] VITALS: BP 129/69
[2022-06-25] MEDS: LEVEMIR (INSULIN DETEMIR) 1 UNITS/0.01ML SC SCH ×2 (08:09→22:37)
[2022-06-25] MEDS: INSULIN LISPRO (NovoLOG) PER UNIT SC SCH ×7 (08:10→22:38)
[2022-06-25] MEDS: GABAPENTIN 300 MG CAP PO SCH ×3 (08:11→22:35)
[2022-06-25] MEDS: ENOXAPARIN 40MG/0.4ML SYRINGE (J1650 PER 10MG) SC SCH ×2 (08:11→22:38)
[2022-06-25] MEDS: TORSEMIDE 20 MG TAB PO SCH ×2 (08:12→17:20)
[2022-06-25] MEDS: POTASSIUM CHLORIDE 10MEQ SR TABLET PO SCH ×2 (08:12→22:36)
[2022-06-25] MEDS: SPIRONOLACTONE 12.5MG PER 1/2 TABLET PO SCH (08:12)
[2022-06-25] MEDS: DAPAGLIFLOZIN PROPANEDIOL 10MG TABLET (FARXIGA) PO SCH (08:12)
[2022-06-25] MEDS: CARVedilol 12.5 MG TAB PO SCH ×2 (08:13→22:36)
[2022-06-25] MEDS: ATORVASTATIN 10 MG TAB PO SCH (08:13)
[2022-06-25] MEDS: allopurinoL 100 MG TAB PO SCH (08:13)
[2022-06-25] MEDS: OMEPRAZOLE 20MG CAP PO SCH (08:13)
[2022-06-25 09:00] VITALS: O2SAT 96
[2022-06-25] MEDS: oxyCODONE 5MG TAB PO PRN ×2 (13:42→18:41)
[2022-06-25] MEDS: AMITRIPTYLINE 25MG TABLET PO SCH (22:35)
[2022-06-25] MEDS: CETIRIZINE (ZyrTEC) 10 MG TAB PO SCH (22:36)
[2022-06-25] MEDS: TAMSULOSIN 0.4 MG CAP PO SCH (22:36)
[2022-06-26 05:10] VITALS: BP 106/62
[2022-06-26] MEDS: INSULIN LISPRO (NovoLOG) PER UNIT SC SCH ×7 (08:43→22:06)
[2022-06-26] MEDS: LEVEMIR (INSULIN DETEMIR) 1 UNITS/0.01ML SC SCH ×2 (08:43→22:08)
[2022-06-26] MEDS: GABAPENTIN 300 MG CAP PO SCH ×3 (08:44→22:04)
[2022-06-26] MEDS: ENOXAPARIN 40MG/0.4ML SYRINGE (J1650 PER 10MG) SC SCH ×2 (08:44→22:05)
[2022-06-26] MEDS: DAPAGLIFLOZIN PROPANEDIOL 10MG TABLET (FARXIGA) PO SCH (08:44)
[2022-06-26] MEDS: TORSEMIDE 20 MG TAB PO SCH ×2 (08:44→17:18)
[2022-06-26] MEDS: allopurinoL 100 MG TAB PO SCH (08:44)
[2022-06-26] MEDS: SPIRONOLACTONE 12.5MG PER 1/2 TABLET PO SCH (08:45)
[2022-06-26] MEDS: ATORVASTATIN 10 MG TAB PO SCH (08:45)
[2022-06-26] MEDS: OMEPRAZOLE 20MG CAP PO SCH (08:45)
[2022-06-26] MEDS: POTASSIUM CHLORIDE 10MEQ SR TABLET PO SCH ×2 (08:45→22:04)
[2022-06-26] MEDS: CARVedilol 12.5 MG TAB PO SCH ×2 (08:49→22:05)
[2022-06-26] MEDS ORDERED: MOM 30ML SUSPENSION UDC PO ONE (17:30)
[2022-06-26] MEDS: CETIRIZINE (ZyrTEC) 10 MG TAB PO SCH (22:03)
[2022-06-26] MEDS: TAMSULOSIN 0.4 MG CAP PO SCH (22:04)
[2022-06-26] MEDS: AMITRIPTYLINE 25MG TABLET PO SCH (22:04)
[2022-06-26] MEDS: oxyCODONE 5MG TAB PO PRN (22:09)
[2022-06-27 06:00] VITALS: BP 110/67
[2022-06-27] MEDS: INSULIN LISPRO (NovoLOG) PER UNIT SC SCH ×7 (08:00→20:52)
[2022-06-27] MEDS: LEVEMIR (INSULIN DETEMIR) 1 UNITS/0.01ML SC SCH ×2 (08:06→20:52)
[2022-06-27] MEDS: ENOXAPARIN 40MG/0.4ML SYRINGE (J1650 PER 10MG) SC SCH ×2 (08:08→20:52)
[2022-06-27] MEDS: DAPAGLIFLOZIN PROPANEDIOL 10MG TABLET (FARXIGA) PO SCH (08:08)
[2022-06-27] MEDS: CARVedilol 12.5 MG TAB PO SCH ×2 (08:10→20:50)
[2022-06-27] MEDS: allopurinoL 100 MG TAB PO SCH (08:11)
[2022-06-27] MEDS: ATORVASTATIN 10 MG TAB PO SCH (08:11)
[2022-06-27] MEDS: OMEPRAZOLE 20MG CAP PO SCH (08:11)
[2022-06-27] MEDS: TORSEMIDE 20 MG TAB PO SCH ×2 (08:15→17:15)
[2022-06-27] MEDS: SPIRONOLACTONE 12.5MG PER 1/2 TABLET PO SCH (08:15)
[2022-06-27] MEDS: POTASSIUM CHLORIDE 10MEQ SR TABLET PO SCH ×2 (08:15→20:50)
[2022-06-27] MEDS: GABAPENTIN 300 MG CAP PO SCH ×3 (08:20→20:49)
[2022-06-27] MEDS: AMITRIPTYLINE 25MG TABLET PO SCH (20:49)
[2022-06-27] MEDS: TAMSULOSIN 0.4 MG CAP PO SCH (20:49)
[2022-06-27] MEDS: tiZANidine 4 MG TAB PO PRN (20:50)
[2022-06-27] MEDS: CETIRIZINE (ZyrTEC) 10 MG TAB PO SCH (20:50)
[2022-06-27] MEDS: oxyCODONE 5MG TAB PO PRN (20:51)
[2022-06-28 06:00] VITALS: BP 107/65
[2022-06-28] MEDS: INSULIN LISPRO (NovoLOG) PER UNIT SC SCH ×7 (08:00→21:19)
[2022-06-28] MEDS: ENOXAPARIN 40MG/0.4ML SYRINGE (J1650 PER 10MG) SC SCH ×2 (08:01→21:18)
[2022-06-28] MEDS: LEVEMIR (INSULIN DETEMIR) 1 UNITS/0.01ML SC SCH ×2 (08:02→21:18)
[2022-06-28] MEDS: DAPAGLIFLOZIN PROPANEDIOL 10MG TABLET (FARXIGA) PO SCH (08:03)
[2022-06-28] MEDS: POTASSIUM CHLORIDE 10MEQ SR TABLET PO SCH (08:03)
[2022-06-28] MEDS: GABAPENTIN 300 MG CAP PO SCH ×3 (08:03→21:18)
[2022-06-28] MEDS: SPIRONOLACTONE 12.5MG PER 1/2 TABLET PO SCH (08:03)
[2022-06-28] MEDS: TORSEMIDE 20 MG TAB PO SCH ×2 (08:04→17:46)
[2022-06-28] MEDS: OMEPRAZOLE 20MG CAP PO SCH (08:04)
[2022-06-28] MEDS: CARVedilol 12.5 MG TAB PO SCH ×2 (08:05→21:20)
[2022-06-28] MEDS: ATORVASTATIN 10 MG TAB PO SCH (08:05)
[2022-06-28] MEDS: allopurinoL 100 MG TAB PO SCH (08:07)
[2022-06-28 11:20] LABS: BLOOD UREA NITROGEN 36 MG/DL (9-23); CALCIUM LEVEL 9.1 MG/DL (8.5-10.1); CARBON DIOXIDE LEVEL 36 MMOL/L (20-31); CHLORIDE LEVEL 89 MMOL/L (98-107); CREATININE FOR GFR 1.18 MG/DL (0.70-1.30); GLOMERULAR FILTRATION RATE > 60.0 (>56); GLUCOSE, FASTING 296 MG/DL (60-100); POTASSIUM SERUM 5.2 MMOL/L (3.5-5.1); SODIUM LEVEL 132 MMOL/L (136-145)
[2022-06-28 16:01] LABS: BLOOD UREA NITROGEN 35 MG/DL (9-23); CALCIUM LEVEL 9.2 MG/DL (8.5-10.1); CARBON DIOXIDE LEVEL 36 MMOL/L (20-31); CHLORIDE LEVEL 90 MMOL/L (98-107); CREATININE FOR GFR 1.18 MG/DL (0.70-1.30); GLOMERULAR FILTRATION RATE > 60.0 (>56); GLUCOSE, FASTING 209 MG/DL (60-100); SODIUM LEVEL 134 MMOL/L (136-145)
[2022-06-28] MEDS ORDERED: ONDANSETRON 4MG 2ML VIAL IV PRN (20:15)
[2022-06-28] MEDS: ONDANSETRON 4MG TAB PO PRN (21:17)
[2022-06-28] MEDS: oxyCODONE 5MG TAB PO PRN (21:17)
[2022-06-28] MEDS: AMITRIPTYLINE 25MG TABLET PO SCH (21:17)
[2022-06-28] MEDS: TAMSULOSIN 0.4 MG CAP PO SCH (21:18)
[2022-06-28] MEDS: CETIRIZINE (ZyrTEC) 10 MG TAB PO SCH (21:18)
[2022-06-29 00:42] VITALS: O2SAT 93
[2022-06-29] MEDS: ONDANSETRON 4MG TAB PO PRN ×3 (02:11→15:27)
[2022-06-29 06:00] VITALS: BP 125/62
[2022-06-29 06:36] LABS: BLOOD UREA NITROGEN 31 MG/DL (9-23); CARBON DIOXIDE LEVEL 34 MMOL/L (20-31); CHLORIDE LEVEL 88 MMOL/L (98-107); CREATININE FOR GFR 1.11 MG/DL (0.70-1.30); GLOMERULAR FILTRATION RATE > 60.0 (>56); GLUCOSE, FASTING 252 MG/DL (60-100); POTASSIUM SERUM 5.3 MMOL/L (3.5-5.1); SODIUM LEVEL 132 MMOL/L (136-145)
[2022-06-29 08:34] VITALS: BP 125/79
[2022-06-29] MEDS: SPIRONOLACTONE 12.5MG PER 1/2 TABLET PO SCH (08:37)
[2022-06-29] MEDS: ATORVASTATIN 10 MG TAB PO SCH (08:37)
[2022-06-29] MEDS: allopurinoL 100 MG TAB PO SCH (08:37)
[2022-06-29] MEDS: TORSEMIDE 20 MG TAB PO SCH ×2 (08:37→16:40)
[2022-06-29] MEDS: OMEPRAZOLE 20MG CAP PO SCH (08:37)
[2022-06-29] MEDS: CARVedilol 12.5 MG TAB PO SCH ×2 (08:37→21:05)
[2022-06-29] MEDS: DAPAGLIFLOZIN PROPANEDIOL 10MG TABLET (FARXIGA) PO SCH (08:38)
[2022-06-29] MEDS: GABAPENTIN 300 MG CAP PO SCH ×3 (08:38→21:04)
[2022-06-29] MEDS: INSULIN LISPRO (NovoLOG) PER UNIT SC SCH ×8 (08:38→22:27)
[2022-06-29] MEDS: LEVEMIR (INSULIN DETEMIR) 1 UNITS/0.01ML SC SCH ×3 (08:39→21:00)
[2022-06-29] MEDS: ENOXAPARIN 40MG/0.4ML SYRINGE (J1650 PER 10MG) SC SCH ×2 (08:41→21:05)
[2022-06-29 12:36] LABS: BLOOD UREA NITROGEN 33 MG/DL (9-23); CALCIUM LEVEL 9.4 MG/DL (8.5-10.1); CARBON DIOXIDE LEVEL 39 MMOL/L (20-31); CHLORIDE LEVEL 88 MMOL/L (98-107); CREATININE FOR GFR 1.16 MG/DL (0.70-1.30); GLOMERULAR FILTRATION RATE > 60.0 (>56); GLUCOSE, FASTING 293 MG/DL (60-100); POTASSIUM SERUM 5.6 MMOL/L (3.5-5.1); SODIUM LEVEL 132 MMOL/L (136-145)
[2022-06-29 13:36] LABS: BASO % 0.3 % (0.0-1.0); EOS # 0.1 10^3/uL (0.0-0.5); EOS % 1.2 % (0.0-3.0); HEMATOCRIT 37.5 % (42.0-52.0); LYMPH % 9.4 % (24.0-44.0); MEAN CORPUSCULAR HEMOGLOBIN 29.3 pg (27.0-33.0); MEAN CORPUSCULAR VOLUME 91.5 fl (80.0-96.0); MONO # 0.7 10^3/uL (0.0-0.8); NEUTROPHILS # 8.3 10^3/uL (1.5-8.5); NEUTROPHILS % 81.5 % (36.0-66.0); PLATELET COUNT, AUTOMATED 527 10^3/uL (150-450); WHITE BLOOD COUNT 10.1 10^3/uL (4.0-10.0)
[2022-06-29 16:08] LABS: ALBUMIN 2.5 G/DL (3.2-5.2); ALKALINE PHOSPHATASE 88 U/L (46-116); ALT/SGPT 32 U/L (7.0-40); AST/SGOT 24 U/L (<34); BILIRUBIN,TOTAL 0.5 MG/DL (0.3-1.2); BLOOD UREA NITROGEN 34 MG/DL (9-23); CALCIUM LEVEL 9.2 MG/DL (8.5-10.1); CARBON DIOXIDE LEVEL 36 MMOL/L (20-31); CHLORIDE LEVEL 88 MMOL/L (98-107); CREATININE FOR GFR 1.11 MG/DL (0.70-1.30); GLOMERULAR FILTRATION RATE > 60.0 (>56); GLUCOSE, FASTING 266 MG/DL (60-100); MAGNESIUM LEVEL 1.9 MG/DL (1.8-2.4); POTASSIUM SERUM 4.7 MMOL/L (3.5-5.1); SODIUM LEVEL 131 MMOL/L (136-145); TOTAL PROTEIN 7.1 G/DL (5.7-8.2)
[2022-06-29] MEDS: PANTOPRAZOLE 40MG VIAL IV SCH (17:02)
[2022-06-29 20:31] VITALS: BP 114/67
[2022-06-29] MEDS: TAMSULOSIN 0.4 MG CAP PO SCH (21:04)
[2022-06-29] MEDS: AMITRIPTYLINE 25MG TABLET PO SCH (21:05)
[2022-06-29] MEDS: CETIRIZINE (ZyrTEC) 10 MG TAB PO SCH (21:05)
[2022-06-29 21:59] VITALS: O2SAT 95
[2022-06-29] MEDS ORDERED: PROMETHAZINE 25MG/ML 1ML VIAL IV ONE (22:00)
[2022-06-29] MEDS ORDERED: NS 1,000 ML IV SCH (22:10)
[2022-06-29] MEDS: ONDANSETRON 4MG 2ML VIAL IV PRN (22:26)
[2022-06-30 05:30] VITALS: BP 118/69
[2022-06-30 06:12] LABS: BASO % 0.3 % (0.0-1.0); EOS # 0.1 10^3/uL (0.0-0.5); EOS % 1.3 % (0.0-3.0); HEMATOCRIT 36.1 % (42.0-52.0); HEMOGLOBIN 11.6 g/dl (13.5-17.5); LYMPH % 9.5 % (24.0-44.0); MEAN CORPUSCULAR HEMOGLOBIN 29.4 pg (27.0-33.0); MEAN CORPUSCULAR HGB CONC 32.1 g/dl (32.0-36.5); MEAN CORPUSCULAR VOLUME 91.4 fl (80.0-96.0); MONO # 0.7 10^3/uL (0.0-0.8); MONO % 5.9 % (2.0-8.0); NEUTROPHILS # 9.1 10^3/uL (1.5-8.5); NEUTROPHILS % 82.6 % (36.0-66.0); PLATELET COUNT, AUTOMATED 509 10^3/uL (150-450); RED BLOOD COUNT 3.95 10^6/uL (4.30-6.10)
[2022-06-30 06:41] LABS: BLOOD UREA NITROGEN 40 MG/DL (9-23); CALCIUM LEVEL 9.1 MG/DL (8.5-10.1); CARBON DIOXIDE LEVEL 36 MMOL/L (20-31); CHLORIDE LEVEL 88 MMOL/L (98-107); CREATININE FOR GFR 1.17 MG/DL (0.70-1.30); GLOMERULAR FILTRATION RATE > 60.0 (>56); GLUCOSE, FASTING 263 MG/DL (60-100); POTASSIUM SERUM 5.2 MMOL/L (3.5-5.1); SODIUM LEVEL 132 MMOL/L (136-145)
[2022-06-30] MEDS: INSULIN LISPRO (NovoLOG) PER UNIT SC SCH ×7 (07:30→21:51)
[2022-06-30] MEDS: ONDANSETRON 4MG 2ML VIAL IV PRN (08:13)
[2022-06-30] MEDS: GABAPENTIN 300 MG CAP PO SCH ×3 (09:00→21:52)
[2022-06-30] MEDS: CARVedilol 12.5 MG TAB PO SCH ×3 (09:00→21:54)
[2022-06-30] MEDS: LEVEMIR (INSULIN DETEMIR) 1 UNITS/0.01ML SC SCH ×2 (10:09→21:50)
[2022-06-30] MEDS: ENOXAPARIN 40MG/0.4ML SYRINGE (J1650 PER 10MG) SC SCH ×2 (10:09→21:51)
[2022-06-30] MEDS: SEMAGLUTIDE 0.25 MG/0.4 ML SC SCH (10:10)
[2022-06-30] MEDS: oxyCODONE 5MG TAB PO PRN ×2 (11:44→20:30)
[2022-06-30] MEDS: ATORVASTATIN 10 MG TAB PO SCH (12:47)
[2022-06-30] MEDS: DAPAGLIFLOZIN PROPANEDIOL 10MG TABLET (FARXIGA) PO SCH (12:47)
[2022-06-30] MEDS: TORSEMIDE 20 MG TAB PO SCH ×2 (12:48→16:07)
[2022-06-30] MEDS: allopurinoL 100 MG TAB PO SCH (12:48)
[2022-06-30 14:00] VITALS: BP 126/68
[2022-06-30] MEDS: PANTOPRAZOLE 40MG VIAL IV SCH (16:07)
[2022-06-30] MEDS: SUCRALFATE SUSP 1GM/10ML UD PO SCH ×2 (16:07→21:51)
[2022-06-30 20:30] VITALS: BP 115/65
[2022-06-30] MEDS: AMITRIPTYLINE 25MG TABLET PO SCH (21:56)
[2022-06-30] MEDS: TAMSULOSIN 0.4 MG CAP PO SCH (21:56)
[2022-06-30] MEDS: CETIRIZINE (ZyrTEC) 10 MG TAB PO SCH (21:56)
[2022-06-30 22:02] VITALS: BP 112/80
[2022-07-01] MEDS: oxyCODONE 5MG TAB PO PRN ×4 (01:19→21:21)
[2022-07-01 05:10] VITALS: BP 115/66
[2022-07-01] MEDS: SUCRALFATE SUSP 1GM/10ML UD PO SCH ×3 (05:10→21:25)
[2022-07-01 06:00] VITALS: BP 118/69
[2022-07-01 06:56] LABS: BASO % 0.4 % (0.0-1.0); EOS # 0.2 10^3/uL (0.0-0.5); EOS % 2.7 % (0.0-3.0); HEMATOCRIT 35.2 % (42.0-52.0); HEMOGLOBIN 11.4 g/dl (13.5-17.5); LYMPH # 1.6 10^3/uL (1.5-5.0); LYMPH % 19.6 % (24.0-44.0); MEAN CORPUSCULAR HEMOGLOBIN 29.6 pg (27.0-33.0); MEAN CORPUSCULAR HGB CONC 32.4 g/dl (32.0-36.5); MEAN CORPUSCULAR VOLUME 91.4 fl (80.0-96.0); MONO # 0.6 10^3/uL (0.0-0.8); MONO % 6.9 % (2.0-8.0); NEUTROPHILS # 5.6 10^3/uL (1.5-8.5); NEUTROPHILS % 69.8 % (36.0-66.0); PLATELET COUNT, AUTOMATED 425 10^3/uL (150-450); RED BLOOD COUNT 3.85 10^6/uL (4.30-6.10); WHITE BLOOD COUNT 8.1 10^3/uL (4.0-10.0)
[2022-07-01 07:23] LABS: BLOOD UREA NITROGEN 39 MG/DL (9-23); CALCIUM LEVEL 9.1 MG/DL (8.5-10.1); CARBON DIOXIDE LEVEL 37 MMOL/L (20-31); CHLORIDE LEVEL 89 MMOL/L (98-107); CREATININE FOR GFR 1.31 MG/DL (0.70-1.30); GLOMERULAR FILTRATION RATE > 60.0 (>56); GLUCOSE, FASTING 151 MG/DL (60-100); POTASSIUM SERUM 4.6 MMOL/L (3.5-5.1); SODIUM LEVEL 134 MMOL/L (136-145)
[2022-07-01] MEDS: INSULIN LISPRO (NovoLOG) PER UNIT SC SCH ×6 (07:30→21:15)
[2022-07-01 08:00] VITALS: BP 118/69
[2022-07-01] MEDS: GABAPENTIN 300 MG CAP PO SCH ×3 (08:43→21:16)
[2022-07-01] MEDS: TORSEMIDE 20 MG TAB PO SCH (08:44)
[2022-07-01] MEDS: CARVedilol 12.5 MG TAB PO SCH ×2 (08:46→21:00)
[2022-07-01] MEDS: allopurinoL 100 MG TAB PO SCH (08:46)
[2022-07-01] MEDS: ATORVASTATIN 10 MG TAB PO SCH (08:46)
[2022-07-01] MEDS: ENOXAPARIN 40MG/0.4ML SYRINGE (J1650 PER 10MG) SC SCH ×2 (08:47→21:15)
[2022-07-01] MEDS: DAPAGLIFLOZIN PROPANEDIOL 10MG TABLET (FARXIGA) PO SCH (08:50)
[2022-07-01] MEDS: LEVEMIR (INSULIN DETEMIR) 1 UNITS/0.01ML SC SCH ×2 (12:14→21:15)
[2022-07-01 14:00] VITALS: BP 116/70
[2022-07-01] MEDS: PANTOPRAZOLE 40MG VIAL IV SCH (17:05)
[2022-07-01 20:00] VITALS: BP 120/87
[2022-07-01] MEDS: AMITRIPTYLINE 25MG TABLET PO SCH (21:16)
[2022-07-01] MEDS: CETIRIZINE (ZyrTEC) 10 MG TAB PO SCH (21:16)
[2022-07-01] MEDS: TAMSULOSIN 0.4 MG CAP PO SCH (21:16)
[2022-07-01 22:36] VITALS: O2SAT 90
[2022-07-02] MEDS: SUCRALFATE SUSP 1GM/10ML UD PO SCH ×2 (05:57→13:07)
[2022-07-02 06:00] VITALS: BP 130/84
[2022-07-02 06:31] LABS: BASO # 0.1 10^3/uL (0.0-0.2); BASO % 0.5 % (0.0-1.0); EOS # 0.1 10^3/uL (0.0-0.5); EOS % 1.4 % (0.0-3.0); HEMATOCRIT 35.4 % (42.0-52.0); HEMOGLOBIN 11.6 g/dl (13.5-17.5); LYMPH # 1.1 10^3/uL (1.5-5.0); LYMPH % 11.7 % (24.0-44.0); MEAN CORPUSCULAR HEMOGLOBIN 29.4 pg (27.0-33.0); MEAN CORPUSCULAR HGB CONC 32.8 g/dl (32.0-36.5); MEAN CORPUSCULAR VOLUME 89.6 fl (80.0-96.0); MONO # 0.6 10^3/uL (0.0-0.8); MONO % 6.4 % (2.0-8.0); NEUTROPHILS # 7.5 10^3/uL (1.5-8.5); NEUTROPHILS % 79.4 % (36.0-66.0); PLATELET COUNT, AUTOMATED 508 10^3/uL (150-450); RED BLOOD COUNT 3.95 10^6/uL (4.30-6.10); WHITE BLOOD COUNT 9.4 10^3/uL (4.0-10.0)
[2022-07-02 07:03] LABS: BLOOD UREA NITROGEN 36 MG/DL (9-23); CALCIUM LEVEL 9.5 MG/DL (8.5-10.1); CARBON DIOXIDE LEVEL 37 MMOL/L (20-31); CHLORIDE LEVEL 90 MMOL/L (98-107); CREATININE FOR GFR 1.21 MG/DL (0.70-1.30); GLOMERULAR FILTRATION RATE > 60.0 (>56); GLUCOSE, FASTING 162 MG/DL (60-100); POTASSIUM SERUM 4.7 MMOL/L (3.5-5.1); SODIUM LEVEL 134 MMOL/L (136-145)
[2022-07-02] MEDS: ATORVASTATIN 10 MG TAB PO SCH (08:46)
[2022-07-02] MEDS: GABAPENTIN 300 MG CAP PO SCH (08:46)
[2022-07-02] MEDS: allopurinoL 100 MG TAB PO SCH (08:46)
[2022-07-02] MEDS: ENOXAPARIN 40MG/0.4ML SYRINGE (J1650 PER 10MG) SC SCH (08:46)
[2022-07-02] MEDS: DAPAGLIFLOZIN PROPANEDIOL 10MG TABLET (FARXIGA) PO SCH (08:46)
[2022-07-02] MEDS: LEVEMIR (INSULIN DETEMIR) 1 UNITS/0.01ML SC SCH (08:47)
[2022-07-02] MEDS: oxyCODONE 5MG TAB PO PRN (08:47)
[2022-07-02 08:48] VITALS: BP 130/84
[2022-07-02] MEDS: CARVedilol 12.5 MG TAB PO SCH (08:48)
[2022-07-02] MEDS: INSULIN LISPRO (NovoLOG) PER UNIT SC SCH ×4 (08:48→12:07)
[2022-07-02] MEDS ORDERED: TORSEMIDE 20 MG TAB PO SCH (09:00)
[2022-07-02] MEDS ORDERED: METOCLOPRAMIDE 5 MG TAB PO SCH (12:00)
[2022-07-02] MEDS ORDERED: INSUDET SC (13:36)
[2022-07-02] MEDS ORDERED: TORS20TA2 PO (13:36)
[2022-07-02] MEDS ORDERED: SEMA0.257 SQ (13:36)
[2022-07-02] MEDS ORDERED: METO5TAB2 PO (13:36)
[2022-07-02] MEDS ORDERED: SUCR1ORA PO (13:36)
[2022-07-02] MEDS ORDERED: INSUHUMDS SC ×3 (13:36)
[2022-07-02] MEDS ORDERED: OMEP1CAP73 PO (13:36)
[2022-07-02] MEDS ORDERED: ONDA4INJ4 IV (13:36)
[2022-07-02 14:00] VITALS: BP 117/69
[2022-07-03] MEDS ORDERED: TORSEMIDE 20 MG TAB PO SCH (09:00)
== END 2022-07-02 16:34 | disposition short-term general hospital (02) | DRG 347 ==
LOC: M ED 00:31 → EDBD 00:31 → M ED INP 05:10 → M MSPAV 15:03
PROVIDERS: ADMIT Family Medicine; ATTEND Internal Medicine Nephrology
DX: M48.062 Spinal stenosis, lumbar region with neurogenic claudication (principal); J96.11 Chronic respiratory failure with hypoxia; E11.22 Type 2 diabetes mellitus with diabetic chronic kidney disease; K31.84 Gastroparesis; I13.0 Hypertensive heart and chronic kidney disease with heart failure and stage 1 through stage 4 chronic kidney disease, or unspecified chronic kidney disease; Z68.42 Body mass index [BMI] 45.0-49.9, adult; E11.43 Type 2 diabetes mellitus with diabetic autonomic (poly)neuropathy; I50.9 Heart failure, unspecified; E66.2 Morbid (severe) obesity with alveolar hypoventilation; E87.5 Hyperkalemia; D64.9 Anemia, unspecified; E78.5 Hyperlipidemia, unspecified; E87.6 Hypokalemia; G83.4 Cauda equina syndrome; I25.10 Atherosclerotic heart disease of native coronary artery without angina pectoris; I25.2 Old myocardial infarction; J44.9 Chronic obstructive pulmonary disease, unspecified; K21.9 Gastro-esophageal reflux disease without esophagitis; K29.70 Gastritis, unspecified, without bleeding; N18.9 Chronic kidney disease, unspecified; N40.0 Benign prostatic hyperplasia without lower urinary tract symptoms; R53.1 Weakness; Z86.73 Personal history of transient ischemic attack (TIA), and cerebral infarction without residual deficits; E53.8 Deficiency of other specified B group vitamins; R33.9 Retention of urine, unspecified; Z88.2 Allergy status to sulfonamides; Z91.040 Latex allergy status; Z91.041 Radiographic dye allergy status; Z79.4 Long term (current) use of insulin; F17.200 Nicotine dependence, unspecified, uncomplicated; G89.29 Other chronic pain; Z91.119 Patient's noncompliance with dietary regimen due to unspecified reason

== ENCOUNTER 2022-11-18 09:45 | Outpatient (RCR) | payer OTHER ==
[~2022-11-18 09:45] MED LIST changes: +ALLO100T PO; +ATOR1TAB19 PO; +CARV12.5 PO; +ERGO500029 PO; +FARX1TAB3 PO; +FLOM0.4C39 PO; +GABA600T4 PO; +INSUDET SC; +INSUHUMDS SC; +LISI10TA22 PO; +MECL-58 PO; +METO5TAB2 PO; +ONDA4INJ4 IV; +OXYC10TA12 PO; +POTA-151 PO; +SEMA0.257 SQ; +SPIR-10 PO; +SUCR1ORA PO; +TORS20TA2 PO; +VITMTA PO
== END 2022-11-23 ==
LOC: M PT 09:45
PROVIDERS: ATTEND Nurse Practitioner Adult Health
DX: M48.061 Spinal stenosis, lumbar region without neurogenic claudication (principal)

== ENCOUNTER 2022-12-22 12:15 | Outpatient (RCR) | payer OTHER ==
[~2022-12-22 12:15] MED LIST changes: -AMIT25TA17 PO; +AMIT25TA19 PO
== END 2022-12-24 ==
LOC: M PT 12:15
PROVIDERS: ATTEND Nurse Practitioner Adult Health
DX: M48.061 Spinal stenosis, lumbar region without neurogenic claudication (principal)

== ENCOUNTER → 2023-05-18 | Outpatient (CLI) | payer OTHER ==
[2023-05-18 13:40] LABS: CALCIUM LEVEL 9.5 MG/DL (8.5-10.1); CREATININE FOR GFR 1.42 MG/DL (0.70-1.30); GLOMERULAR FILTRATION RATE 55.5 (>56); MAGNESIUM LEVEL 1.8 MG/DL (1.8-2.4); POTASSIUM SERUM 3.8 MMOL/L (3.5-5.1)
== END ==
LOC: M LAB 12:20
PROVIDERS: ATTEND Physician Assistant
DX: I50.32 Chronic diastolic (congestive) heart failure (principal); E83.42 Hypomagnesemia

== ENCOUNTER → 2023-05-18 | Outpatient (CLI) | payer OTHER | LOC: M LAB 12:23 | PROVIDERS: ATTEND Urology | DX: N40.1 Benign prostatic hyperplasia with lower urinary tract symptoms (principal) ==

== ENCOUNTER → 2023-09-22 | Outpatient (CLI) | payer OTHER ==
[~2023-09-22] MED LIST changes: +DOXY-323 PO; -DOXY-443 PO
[2023-09-22 11:41] LABS: ALT/SGPT 24 U/L (7.0-40); AST/SGOT 23 U/L (<34)
== END ==
LOC: M LAB 10:05
PROVIDERS: ATTEND Student in an Organized Health Care Education/Training Program
DX: M79.7 Fibromyalgia (principal); M46.1 Sacroiliitis, not elsewhere classified

== ENCOUNTER → 2023-09-28 | Outpatient (REF) | payer OTHER ==
[2023-09-28 18:42] LABS: APPEARANCE, URINE CLEAR (CLEAR); BACTERIA, URINE AUTO 2+ (NEGATIVE); BILIRUBIN, URINE AUTO NEGATIVE (NEGATIVE); BLOOD, URINE BLOOD 1+ (NEGATIVE); COLOR, URINE STRAW (YELLOW); GLUCOSE, URINE (UA) AUTO 3+ mg/dL (NEGATIVE); KETONE, URINE AUTO NEGATIVE (NEGATIVE); LEUKOCYTE ESTERASE, URINE AUTO 1+ (NEGATIVE); NITRITE, URINE AUTO NEGATIVE (NEGATIVE); PROTEIN, URINE AUTO NEGATIVE (NEGATIVE); RBC, URINE AUTO 3 /HPF (0-3); SPECIFIC GRAVITY URINE AUTO 1.006 (1.002-1.035); SQUAMOUS EPITHELIAL CELL UR AU 0 /HPF (0-6); UROBILINOGEN, URINE AUTO 0.2 mg/dL (0.0-2.0); WBC, URINE AUTO 42 /HPF (0-3)
== END ==
LOC: M SMT 16:57
PROVIDERS: ATTEND Urology
DX: N31.9 Neuromuscular dysfunction of bladder, unspecified (principal)

== ENCOUNTER → 2023-12-02 | Outpatient (CLI) | payer OTHER ==
[2023-12-02 08:43] LABS: APPEARANCE, URINE CLEAR (CLEAR); BACTERIA, URINE AUTO 1+ (NEGATIVE); BILIRUBIN, URINE AUTO NEGATIVE (NEGATIVE); BLOOD, URINE BLOOD 1+ (NEGATIVE); COLOR, URINE STRAW (YELLOW); GLUCOSE, URINE (UA) AUTO 3+ mg/dL (NEGATIVE); KETONE, URINE AUTO NEGATIVE (NEGATIVE); LEUKOCYTE ESTERASE, URINE AUTO NEGATIVE (NEGATIVE); NITRITE, URINE AUTO NEGATIVE (NEGATIVE); PROTEIN, URINE AUTO NEGATIVE (NEGATIVE); RBC, URINE AUTO 1 /HPF (0-3); SPECIFIC GRAVITY URINE AUTO 1.005 (1.002-1.035); SQUAMOUS EPITHELIAL CELL UR AU 0 /HPF (0-6); UROBILINOGEN, URINE AUTO 0.2 mg/dL (0.0-2.0); WBC, URINE AUTO 2 /HPF (0-3)
[2023-12-02 08:44] LABS: BASO % 0.6 % (0.0-1.0); EOS # 0.2 10^3/uL (0.0-0.5); HEMATOCRIT 36.3 % (42.0-52.0); HEMOGLOBIN 12.2 g/dl (13.5-17.5); LYMPH # 0.9 10^3/uL (1.5-5.0); LYMPH % 18.3 % (24.0-44.0); MEAN CORPUSCULAR HEMOGLOBIN 31.6 pg (27.0-33.0); MEAN CORPUSCULAR HGB CONC 33.6 g/dl (32.0-36.5); MONO # 0.2 10^3/uL (0.0-0.8); MONO % 3.3 % (2.0-8.0); NEUTROPHILS # 3.8 10^3/uL (1.5-8.5); NEUTROPHILS % 74.4 % (36.0-66.0); PLATELET COUNT, AUTOMATED 234 10^3/uL (150-450); RED BLOOD COUNT 3.86 10^6/uL (4.30-6.10); WHITE BLOOD COUNT 5.1 10^3/uL (4.0-10.0)
[2023-12-02 08:59] LABS: ALBUMIN 3.7 G/DL (3.2-5.2); ALKALINE PHOSPHATASE 79 U/L (46-116); ALT/SGPT 23 U/L (7.0-40); AST/SGOT 21 U/L (<34); BILIRUBIN,TOTAL 0.4 MG/DL (0.3-1.2); BLOOD UREA NITROGEN 17 MG/DL (9-23); CALCIUM LEVEL 9.3 MG/DL (8.5-10.1); CARBON DIOXIDE LEVEL 31 MMOL/L (20-31); CHLORIDE LEVEL 104 MMOL/L (98-107); CHOLESTEROL LEVEL 114 MG/DL (<200); CHOLESTEROL RISK RATIO 4.56 (<5); CREATININE FOR GFR 1.13 MG/DL (0.70-1.30); GLOMERULAR FILTRATION RATE > 60.0 (>56); GLUCOSE, FASTING 164 MG/DL (60-100); POTASSIUM SERUM 3.2 MMOL/L (3.5-5.1); SODIUM LEVEL 141 MMOL/L (136-145); TOTAL PROTEIN 8.3 G/DL (5.7-8.2); TRIGLYCERIDES LEVEL 205 MG/DL (<150)
[2023-12-02 08:59] LABS: INR 1.1; PARTIAL THROMBOPLASTIN TIME 31.9 SECONDS (24.8-34.2); PROTHROMBIN TIME 13.8 SECONDS (12.5-14.5)
== END ==
LOC: M LAB 07:48
PROVIDERS: ATTEND Nurse Practitioner Family
DX: Z01.818 Encounter for other preprocedural examination (principal); E78.2 Mixed hyperlipidemia

== ENCOUNTER → 2023-12-02 | Outpatient (CLI) | payer OTHER ==
[2023-12-02 08:58] LABS: CREATININE, URINE 12.8 MG/DL; MAU/CREAT RATIO 117.1 MCG/MG (0.0-30.0)
[2023-12-02 09:20] LABS: ALBUMIN 3.8 G/DL (3.2-5.2); ALKALINE PHOSPHATASE 79 U/L (46-116); ALT/SGPT 21 U/L (7.0-40); AST/SGOT 20 U/L (<34); BILIRUBIN,TOTAL 0.4 MG/DL (0.3-1.2); BLOOD UREA NITROGEN 17 MG/DL (9-23); CALCIUM LEVEL 9.3 MG/DL (8.5-10.1); CARBON DIOXIDE LEVEL 30 MMOL/L (20-31); CHLORIDE LEVEL 103 MMOL/L (98-107); CHOLESTEROL LEVEL 114 MG/DL (<200); CHOLESTEROL RISK RATIO 4.56 (<5); CREATININE FOR GFR 1.12 MG/DL (0.70-1.30); GLOMERULAR FILTRATION RATE > 60.0 (>56); GLUCOSE, FASTING 164 MG/DL (60-100); LDL CHOLESTEROL 48.6 MG/DL (<100); POTASSIUM SERUM 3.2 MMOL/L (3.5-5.1); SODIUM LEVEL 141 MMOL/L (136-145); TOTAL PROTEIN 8.3 G/DL (5.7-8.2); TRIGLYCERIDES LEVEL 202 MG/DL (<150)
[2023-12-02 09:22] LABS: FREE T4 0.65 NG/DL (0.89-1.76)
[2023-12-02 09:23] LABS: THYROID STIMULATING HORMONE 1.637 uIU/ML (0.55-4.78)
== END ==
LOC: M LAB 07:50
PROVIDERS: ATTEND Nurse Practitioner Family
DX: E78.2 Mixed hyperlipidemia (principal); E11.65 Type 2 diabetes mellitus with hyperglycemia; R94.6 Abnormal results of thyroid function studies

== ENCOUNTER 2024-02-14 09:55 | Inpatient (IN) | payer OTHER ==
[2024-02-13 18:45] VITALS: BP 126/66; TEMP 97.6; O2SAT 99
[~2024-02-14] VITALS: Ht 175.3 cm; Wt 160.1 kg
[~2024-02-14 09:55] MED LIST changes: -DOXY-323 PO; +DOXY-441 PO; +GABA-1172; +GABA-1172 PO; +GABA-1490 PO; -GABA-282; -GABA-282 PO; -GABA600T4 PO
[2024-02-14] MEDS: NS 500 ML IV ONE (10:35)
[2024-02-14 10:40] LABS: BASO % 0.5 % (0.0-1.0); EOS # 0.7 10^3/uL (0.0-0.5); EOS % 9.3 % (0.0-3.0); HEMATOCRIT 31.4 % (42.0-52.0); HEMOGLOBIN 10.1 g/dl (13.5-17.5); LYMPH # 1.4 10^3/uL (1.5-5.0); LYMPH % 18.6 % (24.0-44.0); MEAN CORPUSCULAR HEMOGLOBIN 31.6 pg (27.0-33.0); MEAN CORPUSCULAR HGB CONC 32.2 g/dl (32.0-36.5); MEAN CORPUSCULAR VOLUME 98.1 fl (80.0-96.0); MONO # 0.4 10^3/uL (0.0-0.8); MONO % 5.8 % (2.0-8.0); NEUTROPHILS # 4.9 10^3/uL (1.5-8.5); NEUTROPHILS % 65.7 % (36.0-66.0); PLATELET COUNT, AUTOMATED 220 10^3/uL (150-450); WHITE BLOOD COUNT 7.4 10^3/uL (4.0-10.0)
[2024-02-14 10:59] LABS: INR 1.09; PARTIAL THROMBOPLASTIN TIME 29.5 SECONDS (24.8-34.2); PROTHROMBIN TIME 13.7 SECONDS (12.5-14.5)
[2024-02-14 11:00] LABS: CK-MB VALUE MASS 5.1 NG/ML (<3.6)
[2024-02-14 11:02] LABS: CPK CREATINE PHOSPHOKINASE 242 U/L (46-171)
[2024-02-14 11:12] LABS: ALBUMIN 3.7 G/DL (3.2-5.2); ALKALINE PHOSPHATASE 58 U/L (46-116); ALT/SGPT 24 U/L (7.0-40); AST/SGOT 16 U/L (<34); BILIRUBIN,DIRECT < 0.1 MG/DL (<0.4); BILIRUBIN,TOTAL 0.2 MG/DL (0.3-1.2); BLOOD UREA NITROGEN 74 MG/DL (9-23); CALCIUM LEVEL 10.6 MG/DL (8.5-10.1); CARBON DIOXIDE LEVEL 20 MMOL/L (20-31); CHLORIDE LEVEL 106 MMOL/L (98-107); GLOMERULAR FILTRATION RATE 22.6 (>56); GLUCOSE, FASTING 198 MG/DL (60-100); POTASSIUM SERUM 7.8 MMOL/L (3.5-5.1); SODIUM LEVEL 131 MMOL/L (136-145)
[2024-02-14] MEDS: HumuLIN R (REGULAR) INSULIN (NovoLIN R) **100U/ML** PER UNIT IV ONE (11:30)
[2024-02-14] MEDS: DEXTROSE 50% 50ML SYRINGE IV STA ×2 (11:31→20:44)
[2024-02-14] MEDS: CALCIUM GLUCONATE 1,000 MG in D5W MINI-BAG PLUS 100 ML IV ONE ×2 (11:31→16:18)
[2024-02-14] MEDS: NS 1,000 ML IV SCH ×2 (11:43→22:37)
[2024-02-14] MEDS: ALBUTEROL SULFATE 2.5MG/0.5ML INH NEB SOLN NEB ONE (11:53)
[2024-02-14 12:04] LABS: CK-MB VALUE MASS 5.6 NG/ML (<3.6)
[2024-02-14 12:05] LABS: MB/CK RELATIVE INDEX 2.34 (< OR =4)
[2024-02-14 12:09] LABS: POTASSIUM SERUM 7.7 MMOL/L (3.5-5.1)
[2024-02-14] MEDS: PATIROMER SORBITEX CALCIUM 8.4 GM POWDER PACKET (VELTASSA) PO ONE ×3 (13:41→21:06)
[2024-02-14] MEDS ORDERED: IBUP80TA PO (13:52)
[2024-02-14] MEDS ORDERED: FLON1SPR (13:52)
[2024-02-14] MEDS ORDERED: BETA115CR TOP (13:52)
[2024-02-14] MEDS ORDERED: INSU100V6 SQ (13:52)
[2024-02-14] MEDS ORDERED: OMEP-173 PO (13:52)
[2024-02-14] MEDS ORDERED: INSUR50VL SC (13:52)
[2024-02-14] MEDS ORDERED: LISI10TA22 PO (13:52)
[2024-02-14] MEDS ORDERED: MULT-40 PO (13:52)
[2024-02-14] MEDS ORDERED: TORS20TA2 PO ×2 (13:52)
[2024-02-14] MEDS ORDERED: HOME MED LIST COMPLETE! XX SCH (13:55)
[2024-02-14] MEDS ORDERED: AZELASTINE 137MCG NASAL SPY 30 ML (ASTELIN) PRN (15:40)
[2024-02-14] MEDS ORDERED: oxyCODONE 5MG TAB PO PRN (15:40)
[2024-02-14 16:09] LABS: PROCALCITONIN 0.52 ng/ml
[2024-02-14] MEDS: NS 1,000 ML IV ONE ×2 (16:18→20:19)
[2024-02-14] MEDS ORDERED: PATIROMER SORBITEX CALCIUM 8.4 GM POWDER PACKET (VELTASSA) PO ONE (18:20)
[2024-02-14 18:45] VITALS: BP 126/66; TEMP 97.6; O2SAT 99
[2024-02-14 19:45] LABS: CALCIUM LEVEL 9.8 MG/DL (8.5-10.1); CREATININE FOR GFR 2.61 MG/DL (0.70-1.30); GLOMERULAR FILTRATION RATE 27.5 (>56); POTASSIUM SERUM 6.9 MMOL/L (3.5-5.1)
[2024-02-14 19:50] VITALS: BP 131/60; TEMP 97.3; O2SAT 99
[2024-02-14] MEDS: allopurinoL 100 MG TAB PO SCH (20:19)
[2024-02-14] MEDS: ALBUTEROL SULFATE 2.5MG/0.5ML INH NEB SOLN NEB STA (20:42)
[2024-02-14] MEDS: ATORVASTATIN 10 MG TAB PO SCH (20:45)
[2024-02-14] MEDS: HumuLIN R (REGULAR) INSULIN (NovoLIN R) **100U/ML** PER UNIT IV STA (20:45)
[2024-02-14] MEDS: CETIRIZINE (ZyrTEC) 10 MG TAB PO SCH (20:45)
[2024-02-14] MEDS: CALCIUM GLUCONATE 1,000 MG in D5W MINI-BAG PLUS 100 ML IV STA (21:06)
[2024-02-14 23:29] VITALS: BP 132/62; TEMP 97.2; O2SAT 97
[2024-02-15] VITALS (7 sets, daily range): BP systolic 119–158; BP diastolic 56–72; TEMP 97.2–98.6; O2SAT 96–98
[2024-02-15 01:00] LABS: CALCIUM LEVEL 9.4 MG/DL (8.5-10.1); CREATININE FOR GFR 2.29 MG/DL (0.70-1.30); POTASSIUM SERUM 7.1 MMOL/L (3.5-5.1)
[2024-02-15] MEDS: ALBUTEROL SULFATE 2.5MG/0.5ML INH NEB SOLN NEB STA ×2 (01:49→06:18)
[2024-02-15] MEDS: CALCIUM GLUCONATE 1,000 MG in D5W MINI-BAG PLUS 100 ML IV STA ×2 (01:51→05:46)
[2024-02-15] MEDS: DEXTROSE 50% 50ML SYRINGE IV STA ×3 (01:51→11:03)
[2024-02-15] MEDS: HumuLIN R (REGULAR) INSULIN (NovoLIN R) **100U/ML** PER UNIT IV STA ×3 (01:53→11:03)
[2024-02-15] MEDS: BISACODYL ENEMA 10MG/30ML PR STA (02:09)
[2024-02-15 04:38] LABS: HEMATOCRIT 31.6 % (42.0-52.0); HEMOGLOBIN 10.3 g/dl (13.5-17.5); MEAN CORPUSCULAR HEMOGLOBIN 31.3 pg (27.0-33.0); MEAN CORPUSCULAR HGB CONC 32.6 g/dl (32.0-36.5); PLATELET COUNT, AUTOMATED 209 10^3/uL (150-450); RED BLOOD COUNT 3.29 10^6/uL (4.30-6.10); WHITE BLOOD COUNT 5.7 10^3/uL (4.0-10.0)
[2024-02-15 05:08] LABS: CALCIUM LEVEL 9.8 MG/DL (8.5-10.1); CHOLESTEROL RISK RATIO 5.83 (<5); CREATININE FOR GFR 2.09 MG/DL (0.70-1.30); GLOMERULAR FILTRATION RATE 35.5 (>56); POTASSIUM SERUM 6.9 MMOL/L (3.5-5.1)
[2024-02-15 05:20] LABS: HEMOGLOBIN A1c 7.7 % (4.0-6.0)
[2024-02-15] MEDS: SOD POLYSTYRENE SULFONATE SUSP 15GM 60ML UD PO STA (05:46)
[2024-02-15] MEDS: FLUTICASONE PROP 0.05% NASAL SPRAY 16 GM (FLONASE) SCH (08:25)
[2024-02-15] MEDS: FUROSEMIDE 40MG/4ML VIAL IV ONE (08:25)
[2024-02-15] MEDS: OMEPRAZOLE 20MG CAP PO SCH (08:26)
[2024-02-15] MEDS ORDERED: SODIUM BICARBONATE 325 MG TAB PO SCH (09:00)
[2024-02-15 09:16] LABS: VENOUS BASE EXCESS -10.7 (-2.0-2.0); VENOUS HCO3 15.1 MMOL/L (23.0-27.0); VENOUS O2 SATURATION 98.9 % (60.0-80.0); VENOUS PARTIAL PRESSURE CO2 33.3 mmHg (38.0-50.0); VENOUS PARTIAL PRESSURE O2 157.2 mmHg (30.0-50.0); VENOUS PH 7.274 UNITS (7.330-7.430); VENOUS TOTAL CO2 16.1 MMOL/L (24.0-28.0)
[2024-02-15] MEDS: SODIUM BICARBONATE 150 MEQ in D5W 1,000 ML IV SCH (09:45)
[2024-02-15 09:54] LABS: BLOOD UREA NITROGEN 59 MG/DL (9-23); CALCIUM LEVEL 10.3 MG/DL (8.5-10.1); CARBON DIOXIDE LEVEL 18 MMOL/L (20-31); CHLORIDE LEVEL 106 MMOL/L (98-107); CREATININE FOR GFR 1.94 MG/DL (0.70-1.30); GLOMERULAR FILTRATION RATE 38.7 (>56); GLUCOSE, FASTING 291 MG/DL (60-100); POTASSIUM SERUM 7.3 MMOL/L (3.5-5.1); SODIUM LEVEL 130 MMOL/L (136-145)
[2024-02-15] MEDS ORDERED: ALBUTEROL SULFATE 2.5MG/0.5ML INH NEB SOLN NEB ONE (10:00)
[2024-02-15] MEDS: ALBUTEROL SULFATE 2.5MG/0.5ML INH NEB SOLN NEB ONE (10:59)
[2024-02-15] MEDS: HumuLIN R (REGULAR) INSULIN (NovoLIN R) **100U/ML** PER UNIT SC STA (11:00)
[2024-02-15] MEDS: CALCIUM GLUCONATE 1,000 MG in D5W MINI-BAG PLUS 100 ML IV ONE (11:03)
[2024-02-15 11:41] LABS: ALBUMIN 3.9 G/DL (3.2-5.2); PHOSPHORUS LEVEL 4.5 MG/DL (2.5-4.9)
[2024-02-15 13:54] LABS: ALBUMIN 3.7 G/DL (3.2-5.2); CALCIUM LEVEL 9.9 MG/DL (8.5-10.1); CREATININE FOR GFR 1.8 MG/DL (0.70-1.30); GLOMERULAR FILTRATION RATE 42.2 (>56); PHOSPHORUS LEVEL 3.7 MG/DL (2.5-4.9); POTASSIUM SERUM 7.4 MMOL/L (3.5-5.1)
[2024-02-15] MEDS ORDERED: GLUCAGON INJ 1MG VIAL SC PRN (13:55)
[2024-02-15] MEDS ORDERED: GLUCOSE 4 GM CHEW PO PRN (13:55)
[2024-02-15] MEDS ORDERED: DEXTROSE 50% 50ML SYRINGE IV PRN (13:55)
[2024-02-15] MEDS: HEPARIN SOD (PORCINE) 5000UNITS/ML 1ML VIAL/SYRINGE SQ SCH (14:00)
[2024-02-15] MEDS ORDERED: LIDOCAINE 1% MDV 20ML VIAL As Ordered ONE (14:45)
[2024-02-15] MEDS: LIDOCAINE 1% MDV 20ML VIAL SC ONE (14:50)
[2024-02-15] MEDS: HEPARIN 1,000UNITS/ML 10ML VIAL (FOR RADIOLOGY & DIALYSIS ONLY) IV STA (15:13)
[2024-02-15] MEDS ORDERED: HEPARIN 1,000UNITS/ML 10ML VIAL (FOR RADIOLOGY & DIALYSIS ONLY) IV PRN (15:15)
[2024-02-15] MEDS ORDERED: SODIUM CHLORIDE 0.9% 1000ML IV PRN (15:15)
[2024-02-15] MEDS ORDERED: HEPARIN 1,000UNITS/ML 10ML VIAL (FOR RADIOLOGY & DIALYSIS ONLY) XX SCH (15:15)
[2024-02-15 15:24] LABS: HEPATITIS B SURFACE ANTIBODY NEGATIVE (POSITIVE)
[2024-02-15 15:37] LABS: HEPATITIS B SURFACE ANTIGEN NEGATIVE (NEGATIVE)
[2024-02-15 15:57] LABS: HEPATITIS B CORE ANTIBODY IGM NEGATIVE (NEGATIVE); HEPATITIS C VIRUS ABY INDEX 0.19 INDEX (<0.8)
[2024-02-15 16:46] LABS: CORTISOL AM 7.5 UG/DL (4.3-22.4)
[2024-02-15] MEDS ORDERED: FLUBLOK(EGGFREE) TRIVAL(24-25) VACCINE PF 0.5ML SYRINGE 18YRS & OLDER IM.IMMUN ONE (17:00)
[2024-02-15] MEDS: INSULIN LISPRO (NovoLOG) PER UNIT SC SCH ×2 (18:05→21:00)
[2024-02-15 21:53] LABS: ALBUMIN 3.6 G/DL (3.2-5.2); BLOOD UREA NITROGEN 28 MG/DL (9-23); CALCIUM LEVEL 9.5 MG/DL (8.5-10.1); CARBON DIOXIDE LEVEL 24 MMOL/L (20-31); CHLORIDE LEVEL 104 MMOL/L (98-107); CREATININE FOR GFR 1.19 MG/DL (0.70-1.30); GLOMERULAR FILTRATION RATE > 60.0 (>56); GLUCOSE, FASTING 226 MG/DL (60-100); PHOSPHORUS LEVEL 3.5 MG/DL (2.5-4.9); POTASSIUM SERUM 4.6 MMOL/L (3.5-5.1); SODIUM LEVEL 135 MMOL/L (136-145)
[2024-02-16 00:41] LABS: BLOOD UREA NITROGEN 30 MG/DL (9-23); CALCIUM LEVEL 9.4 MG/DL (8.5-10.1); CARBON DIOXIDE LEVEL 23 MMOL/L (20-31); CHLORIDE LEVEL 105 MMOL/L (98-107); CREATININE FOR GFR 1.28 MG/DL (0.70-1.30); GLOMERULAR FILTRATION RATE > 60.0 (>56); GLUCOSE, FASTING 256 MG/DL (60-100); POTASSIUM SERUM 4.8 MMOL/L (3.5-5.1); SODIUM LEVEL 134 MMOL/L (136-145)
[2024-02-16 04:38] VITALS: BP 118/56; TEMP 96.8; O2SAT 97
[2024-02-16] MEDS: POLYSPORIN TOPICAL OINTMENT 15GM TOP PRN (06:17)
[2024-02-16 06:46] LABS: HEMOGLOBIN 9.8 g/dl (13.5-17.5); MEAN CORPUSCULAR HEMOGLOBIN 31.7 pg (27.0-33.0); MEAN CORPUSCULAR HGB CONC 33.8 g/dl (32.0-36.5); MEAN CORPUSCULAR VOLUME 93.9 fl (80.0-96.0); PLATELET COUNT, AUTOMATED 183 10^3/uL (150-450); RED BLOOD COUNT 3.09 10^6/uL (4.30-6.10); WHITE BLOOD COUNT 6.1 10^3/uL (4.0-10.0)
[2024-02-16 07:10] LABS: CALCIUM LEVEL 9.5 MG/DL (8.5-10.1); CREATININE FOR GFR 1.36 MG/DL (0.70-1.30); GLOMERULAR FILTRATION RATE 58.4 (>56); POTASSIUM SERUM 5.4 MMOL/L (3.5-5.1)
[2024-02-16 08:28] VITALS: BP 146/63; TEMP 97.4; O2SAT 94
[2024-02-16 12:00] VITALS: BP 135/62; TEMP 97.7; O2SAT 97
[2024-02-16 13:56] LABS: ALBUMIN 3.6 G/DL (3.2-5.2); CALCIUM LEVEL 9.7 MG/DL (8.5-10.1); CREATININE FOR GFR 1.39 MG/DL (0.70-1.30); GLOMERULAR FILTRATION RATE 56.9 (>56); PHOSPHORUS LEVEL 3.9 MG/DL (2.5-4.9); POTASSIUM SERUM 5.7 MMOL/L (3.5-5.1)
[2024-02-16 16:00] VITALS: BP 142/69; TEMP 97.3; O2SAT 96
[2024-02-16 19:45] VITALS: BP 146/66; TEMP 97.4; O2SAT 99
[2024-02-16 23:39] VITALS: BP 149/67; TEMP 97.4; O2SAT 98
[2024-02-17 03:43] VITALS: BP 148/69; TEMP 96.9; O2SAT 99
[2024-02-17 06:05] LABS: HEMATOCRIT 27.6 % (42.0-52.0); HEMOGLOBIN 9.1 g/dl (13.5-17.5); MEAN CORPUSCULAR HEMOGLOBIN 31.4 pg (27.0-33.0); MEAN CORPUSCULAR VOLUME 95.2 fl (80.0-96.0); PLATELET COUNT, AUTOMATED 190 10^3/uL (150-450); WHITE BLOOD COUNT 6.1 10^3/uL (4.0-10.0)
[2024-02-17 06:20] LABS: CALCIUM LEVEL 9.6 MG/DL (8.5-10.1); CREATININE FOR GFR 1.47 MG/DL (0.70-1.30); GLOMERULAR FILTRATION RATE 53.3 (>56); POTASSIUM SERUM 5.2 MMOL/L (3.5-5.1)
[2024-02-17 08:13] VITALS: BP 142/67; TEMP 97.2; O2SAT 98
[2024-02-17] MEDS: LEVEMIR (INSULIN DETEMIR) 1 UNITS/0.01ML SC ONE (10:08)
[2024-02-17 12:22] LABS: ALBUMIN 3.6 G/DL (3.2-5.2); ALKALINE PHOSPHATASE 64 U/L (46-116); ALT/SGPT 18 U/L (7.0-40); AST/SGOT 12 U/L (<34); BILIRUBIN,TOTAL 0.3 MG/DL (0.3-1.2); BLOOD UREA NITROGEN 39 MG/DL (9-23); CALCIUM LEVEL 9.6 MG/DL (8.5-10.1); CARBON DIOXIDE LEVEL 22 MMOL/L (20-31); CHLORIDE LEVEL 104 MMOL/L (98-107); CREATININE FOR GFR 1.41 MG/DL (0.70-1.30); GLUCOSE, FASTING 347 MG/DL (60-100); POTASSIUM SERUM 5.3 MMOL/L (3.5-5.1); SODIUM LEVEL 133 MMOL/L (136-145); TOTAL PROTEIN 7.9 G/DL (5.7-8.2)
[2024-02-17 12:27] LABS: HEPATITIS B SURFACE ANTIBODY NEGATIVE (POSITIVE)
[2024-02-17 12:39] LABS: HEPATITIS B SURFACE ANTIGEN NEGATIVE (NEGATIVE)
[2024-02-17 12:51] LABS: HIV SCREEN CENTAUR EXPOSED NEGATIVE (NEGATIVE)
[2024-02-17 13:00] LABS: HEPATITIS B CORE ANTIBODY IGM NEGATIVE (NEGATIVE)
[2024-02-17 13:44] LABS: BASO % 0.4 % (0.0-1.0); EOS # 0.4 10^3/uL (0.0-0.5); EOS % 5.6 % (0.0-3.0); HEMATOCRIT 27.5 % (42.0-52.0); HEMOGLOBIN 9.1 g/dl (13.5-17.5); LYMPH # 0.9 10^3/uL (1.5-5.0); LYMPH % 12.8 % (24.0-44.0); MEAN CORPUSCULAR HEMOGLOBIN 31.3 pg (27.0-33.0); MEAN CORPUSCULAR HGB CONC 33.1 g/dl (32.0-36.5); MEAN CORPUSCULAR VOLUME 94.5 fl (80.0-96.0); MONO # 0.3 10^3/uL (0.0-0.8); MONO % 4.8 % (2.0-8.0); NEUTROPHILS # 5.1 10^3/uL (1.5-8.5); NEUTROPHILS % 76.3 % (36.0-66.0); PLATELET COUNT, AUTOMATED 190 10^3/uL (150-450); RED BLOOD COUNT 2.91 10^6/uL (4.30-6.10); WHITE BLOOD COUNT 6.7 10^3/uL (4.0-10.0)
[2024-02-17 16:00] VITALS: BP 136/64; TEMP 97; O2SAT 98
[2024-02-17] MEDS: FLUBLOK(EGGFREE) TRIVAL(24-25) VACCINE PF 0.5ML SYRINGE 18YRS & OLDER IM.IMMUN ONE (18:34)
[2024-02-17 20:05] VITALS: BP 148/67; TEMP 98.1; O2SAT 96
[2024-02-18 05:50] VITALS: BP 136/72; TEMP 97.2; O2SAT 95
[2024-02-18 06:11] LABS: HEMATOCRIT 27.3 % (42.0-52.0); HEMOGLOBIN 9.1 g/dl (13.5-17.5); MEAN CORPUSCULAR HEMOGLOBIN 31.8 pg (27.0-33.0); MEAN CORPUSCULAR HGB CONC 33.3 g/dl (32.0-36.5); MEAN CORPUSCULAR VOLUME 95.5 fl (80.0-96.0); PLATELET COUNT, AUTOMATED 188 10^3/uL (150-450); RED BLOOD COUNT 2.86 10^6/uL (4.30-6.10); WHITE BLOOD COUNT 6.2 10^3/uL (4.0-10.0)
[2024-02-18 06:35] LABS: CALCIUM LEVEL 9.4 MG/DL (8.5-10.1); CREATININE FOR GFR 1.44 MG/DL (0.70-1.30); GLOMERULAR FILTRATION RATE 54.6 (>56); POTASSIUM SERUM 4.8 MMOL/L (3.5-5.1)
[2024-02-18] MEDS ORDERED: INSU100I48 SQ (08:01)
[2024-02-18] MEDS ORDERED: INSU100I16 SQ (08:03)
[2024-02-18] MEDS: LEVEMIR (INSULIN DETEMIR) 1 UNITS/0.01ML SC ONE (08:35)
[2024-02-18] MEDS ORDERED: INSULIN LISPRO (NovoLOG) PER UNIT SC SCH (12:00)
== END 2024-02-18 10:40 | disposition home or self-care (01) | DRG 469 ==
LOC: M ED 09:55 → M ED INP 14:06 → M PCU 18:39
PROVIDERS: ADMIT General Practice; ATTEND General Practice
PROC: B246ZZZ Ultrasonography of Right and Left Heart (ICD-10-PCS; principal; 2024-02-14)
DX: N17.9 Acute kidney failure, unspecified (principal); E87.21 Acute metabolic acidosis; I11.0 Hypertensive heart disease with heart failure; A08.39 Other viral enteritis; E87.1 Hypo-osmolality and hyponatremia; I95.9 Hypotension, unspecified; I50.32 Chronic diastolic (congestive) heart failure; I27.20 Pulmonary hypertension, unspecified; E66.01 Morbid (severe) obesity due to excess calories; E87.5 Hyperkalemia; Z68.43 Body mass index [BMI] 50.0-59.9, adult; B96.20 Unspecified Escherichia coli [E. coli] as the cause of diseases classified elsewhere; E11.9 Type 2 diabetes mellitus without complications; E78.00 Pure hypercholesterolemia, unspecified; I25.10 Atherosclerotic heart disease of native coronary artery without angina pectoris; G47.33 Obstructive sleep apnea (adult) (pediatric); R26.89 Other abnormalities of gait and mobility; M51.379 Other intervertebral disc degeneration, lumbosacral region without mention of lumbar back pain or lower extremity pain; N52.9 Male erectile dysfunction, unspecified; F17.200 Nicotine dependence, unspecified, uncomplicated; D63.8 Anemia in other chronic diseases classified elsewhere; E86.1 Hypovolemia; R39.9 Unspecified symptoms and signs involving the genitourinary system; Z79.4 Long term (current) use of insulin; Z79.899 Other long term (current) drug therapy; Z91.041 Radiographic dye allergy status; Z88.2 Allergy status to sulfonamides; Z91.040 Latex allergy status; E86.0 Dehydration; K21.9 Gastro-esophageal reflux disease without esophagitis; M10.9 Gout, unspecified; R33.9 Retention of urine, unspecified

== ENCOUNTER → 2024-02-28 | Outpatient (CLI) | payer OTHER ==
[~2024-02-28] MED LIST changes: +BETA115CR TOP; +FLON1SPR; +IBUP80TA PO; +INSU100I16 SQ; +INSU100I48 SQ; +INSU100V6 SQ; +MULT-40 PO; +OMEP-173 PO
[2024-02-28 11:11] LABS: BASO % 0.6 % (0.0-1.0); EOS # 0.4 10^3/uL (0.0-0.5); EOS % 6.2 % (0.0-3.0); HEMATOCRIT 30.2 % (42.0-52.0); LYMPH # 1.3 10^3/uL (1.5-5.0); LYMPH % 19.1 % (24.0-44.0); MEAN CORPUSCULAR HEMOGLOBIN 30.9 pg (27.0-33.0); MEAN CORPUSCULAR HGB CONC 33.1 g/dl (32.0-36.5); MEAN CORPUSCULAR VOLUME 93.2 fl (80.0-96.0); MONO # 0.3 10^3/uL (0.0-0.8); MONO % 4.9 % (2.0-8.0); NEUTROPHILS # 4.5 10^3/uL (1.5-8.5); NEUTROPHILS % 68.7 % (36.0-66.0); PLATELET COUNT, AUTOMATED 327 10^3/uL (150-450); RED BLOOD COUNT 3.24 10^6/uL (4.30-6.10); WHITE BLOOD COUNT 6.6 10^3/uL (4.0-10.0)
[2024-02-28 11:34] LABS: ALBUMIN 3.5 G/DL (3.2-5.2); ALKALINE PHOSPHATASE 68 U/L (40-129); ALT/SGPT 24 U/L (7.0-40); AST/SGOT 15 U/L (<34); BILIRUBIN,TOTAL < 0.2 MG/DL (0.3-1.2); BLOOD UREA NITROGEN 72 MG/DL (9-23); CALCIUM LEVEL 9.3 MG/DL (8.5-10.1); CARBON DIOXIDE LEVEL 20 MMOL/L (20-31); CHLORIDE LEVEL 102 MMOL/L (98-107); CREATININE FOR GFR 1.69 MG/DL (0.70-1.30); GLOMERULAR FILTRATION RATE 45.4 (>56); GLUCOSE, FASTING 217 MG/DL (60-100); SODIUM LEVEL 137 MMOL/L (136-145); TOTAL PROTEIN 7.8 G/DL (5.7-8.2)
== END ==
LOC: M LAB 10:24
PROVIDERS: ATTEND Nurse Practitioner Family
DX: E87.5 Hyperkalemia (principal); I25.10 Atherosclerotic heart disease of native coronary artery without angina pectoris

== ENCOUNTER → 2024-04-04 | Outpatient (REF) | payer OTHER | LOC: M SFHCDERM 16:58 | PROVIDERS: ATTEND Physician Assistant | DX: T14.8XXA Other injury of unspecified body region, initial encounter (principal) ==

== ENCOUNTER 2024-05-02 17:47 | Emergency (ER) | payer OTHER ==
[2024-05-02 19:45] VITALS: BP 116/58; TEMP 98.7; O2SAT 95
== END 2024-05-02 21:07 | disposition home or self-care (01) ==
LOC: M ED 17:47 → EDBD 17:47 → M ED 21:07
DX: N30.01 Acute cystitis with hematuria (principal); E11.9 Type 2 diabetes mellitus without complications; I10 Essential (primary) hypertension; N40.1 Benign prostatic hyperplasia with lower urinary tract symptoms; J44.9 Chronic obstructive pulmonary disease, unspecified; N52.9 Male erectile dysfunction, unspecified; K21.9 Gastro-esophageal reflux disease without esophagitis; Z86.79 Personal history of other diseases of the circulatory system; Z79.52 Long term (current) use of systemic steroids; Z79.02 Long term (current) use of antithrombotics/antiplatelets; Z79.4 Long term (current) use of insulin; Z79.899 Other long term (current) drug therapy

== ENCOUNTER → 2024-11-21 | Outpatient (CLI) | payer MEDICAID, OTHER ==
[~2024-11-21] MED LIST changes: -FLOM0.4C39 PO; +TAMS-18 PO
== END ==
LOC: M LAB 09:12
PROVIDERS: ATTEND Urology
DX: Z12.5 Encounter for screening for malignant neoplasm of prostate (principal)

== ENCOUNTER → 2024-11-21 | Outpatient (CLI) | payer MEDICAID, OTHER ==
[2024-11-21 10:30] LABS: BASO # 0.0 10^3/uL (0.0-0.2); BASO % 0.6 % (0.0-1.0); EOS # 0.2 10^3/uL (0.0-0.5); EOS % 3.7 % (0.0-3.0); LYMPH # 1.0 10^3/uL (1.5-5.0); LYMPH % 17.9 % (24.0-44.0); MONO # 0.3 10^3/uL (0.0-0.8); MONO % 5.0 % (2.0-8.0); NEUTROPHILS # 3.9 10^3/uL (1.5-8.5); NEUTROPHILS % 72.1 % (36.0-66.0); PLATELET COUNT, AUTOMATED 280 10^3/uL (150-450)
[2024-11-21 11:02] LABS: ALT/SGPT 35.0 U/L (7.0-40); AST/SGOT 32.0 U/L (<34); CALCIUM LEVEL 9.5 MG/DL (8.5-10.1); CARBON DIOXIDE LEVEL 28.0 MMOL/L (20-31); CHLORIDE LEVEL 97.0 MMOL/L (98-107); CHOLESTEROL LEVEL 92.0 MG/DL (<200); CHOLESTEROL RISK RATIO 4.08 (<5); CREATININE FOR GFR 1.09 MG/DL (0.70-1.30); GLOMERULAR FILTRATION RATE 80.7 (>56); LDL CHOLESTEROL 8.5 MG/DL (<100); NON-HDL-C 69.5 MG/DL; POTASSIUM SERUM 4.6 MMOL/L (3.5-5.1); SODIUM LEVEL 141.0 MMOL/L (136-145); TRIGLYCERIDES LEVEL 305.0 MG/DL (<150)
[2024-11-21 11:03] LABS: CREATININE, URINE 54.0 MG/DL; MALB URINE SIEMENS 56.0 MG/L; MAU/CREAT RATIO 103.7 MCG/MG (0.0-30.0)
[2024-11-21 12:11] LABS: ESTIMATED AVERAGE GLUCOSE 186.0 MG/DL (60-110)
== END ==
LOC: M LAB 09:14
PROVIDERS: ATTEND Nurse Practitioner Family
DX: E11.40 Type 2 diabetes mellitus with diabetic neuropathy, unspecified (principal); Z12.5 Encounter for screening for malignant neoplasm of prostate

== ENCOUNTER → 2025-01-01 | Outpatient (CLI) | payer OTHER ==
[2025-01-01 15:19] LABS: CALCIUM LEVEL 10.1 MG/DL (8.5-10.1); CARBON DIOXIDE LEVEL 32.0 MMOL/L (20-31); CHLORIDE LEVEL 97.0 MMOL/L (98-107); CREATININE FOR GFR 1.24 MG/DL (0.70-1.30); GLOMERULAR FILTRATION RATE 69.1 (>56); POTASSIUM SERUM 3.9 MMOL/L (3.5-5.1); SODIUM LEVEL 141.0 MMOL/L (136-145)
== END ==
LOC: M LAB 14:13
PROVIDERS: ATTEND Surgery
DX: K80.10 Calculus of gallbladder with chronic cholecystitis without obstruction (principal)

== ENCOUNTER → 2025-01-04 | Outpatient (CLI) | payer OTHER ==
[~2025-01-04] MED LIST changes: +ISOVUE-370 76% 100 ML VIAL As Ordered ONE
== END ==
LOC: M RAD 09:08
PROVIDERS: ATTEND Surgery
DX: K80.10 Calculus of gallbladder with chronic cholecystitis without obstruction (principal); K76.0 Fatty (change of) liver, not elsewhere classified; R16.2 Hepatomegaly with splenomegaly, not elsewhere classified
CPT/HCPCS: 74177; Q9967

== ENCOUNTER → 2025-02-09 | Outpatient (REF) | payer OTHER, MEDICAID ==
[~2025-02-09] MED LIST changes: -ISOVUE-370 76% 100 ML VIAL As Ordered ONE
[2025-02-09 13:49] LABS: APPEARANCE, URINE CLEAR (CLEAR); BACTERIA, URINE AUTO NEGATIVE (NEGATIVE); BILIRUBIN, URINE AUTO NEGATIVE (NEGATIVE); BLOOD, URINE BLOOD 1+ (NEGATIVE); GLUCOSE, URINE (UA) AUTO 3+ mg/dL (NEGATIVE); KETONE, URINE AUTO NEGATIVE (NEGATIVE); LEUKOCYTE ESTERASE, URINE AUTO NEGATIVE (NEGATIVE); NITRITE, URINE AUTO NEGATIVE (NEGATIVE); PROTEIN, URINE AUTO NEGATIVE (NEGATIVE); RBC, URINE AUTO 1 /HPF (0-3); SPECIFIC GRAVITY URINE AUTO 1.006 (1.002-1.035); SQUAMOUS EPITHELIAL CELL UR AU 0 /HPF (0-6); UROBILINOGEN, URINE AUTO 0.2 mg/dL (0.0-2.0); WBC, URINE AUTO 2 /HPF (0-3)
== END ==
LOC: M SMT 13:04
PROVIDERS: ATTEND Urology
DX: R39.9 Unspecified symptoms and signs involving the genitourinary system (principal)